=== PATIENT | female | born 1950 ===

== ENCOUNTER 2017-09-29 14:30 | Inpatient (IN) | payer OTHER, MEDICAID ==
[2017-09-29 16:29] LABS: BASO % 0.6 % (0.0-2.0); EOS # 0.1 K/uL (0.0-0.7); EOS % 1.9 % (0.0-4.0); HEMOGLOBIN 12.8 g/dL (11.0-16.0); LYMPH # 1.1 K/uL (1.0-4.3); LYMPH % 22.1 % (20.0-40.0); MEAN CELL VOLUME 94.7 fL (81.0-99.0); MEAN CORPUSCULAR HGB CONC 33.8 g/dL (33.0-37.0); MEAN PLATELET VOLUME 8.2 fL (7.2-11.7); MONO # 0.3 K/uL (0.0-0.8); MONO % 6.3 % (0.0-10.0); NEUT # 3.5 K/uL (1.8-7.0); NEUT % 69.1 % (50.0-75.0); NRBC % 0.1 % (0.0-2.0); RED CELL DISTRIBUTION WIDTH 13.9 % (11.5-14.5); WHITE BLOOD COUNT 5.1 K/uL (4.8-10.8)
[2017-09-29 16:36] LABS: SQUAMOUS EPITHIAL 2 /hpf (0-5); URINE BACTERIA OCC (<OCC); URINE BILIRUBIN NEGATIVE (NEGATIVE); URINE CLARITY Hazy (Clear); URINE COLOR Yellow (YELLOW); URINE GLUCOSE (UA) NORMAL (Normal); URINE PROTEIN NEGATIVE (NEGATIVE)
[2017-09-29 16:37] LABS: URINE BLOOD 1+ (NEGATIVE); URINE LEUKOCYTE ESTERASE NEGATIVE Leu/uL (Negative)
--- NOTE | 2017-09-29 16:37 | C.PDOC ---
History Of Present Illness 67-year-old female, presents to the emergency department with complaints of depression. Patient states she was seen at [facility], where she was referred to ED. Denies any plan or HI. Time Seen by Provider: 09/29/17 15:11 Chief Complaint (Nursing): Psychiatric Evaluation History Per: Patient History/Exam Limitations: no limitations Past Medical History Reviewed: Historical Data, Nursing Documentation, Vital Signs Vital Signs: Last Vital Signs Temp 98.1 F 10/02/17 06:23 Pulse 70 10/02/17 08:50 Resp 20 10/02/17 06:23 BP 133/71 10/02/17 08:50 Pulse Ox 96 10/02/17 06:23 - Medical History PMH: Anxiety, Depression, HTN Family History: States: No Known Family Hx - Social History Hx Alcohol Use: No Hx Substance Use: No - Immunization History Hx Tetanus Toxoid Vaccination: No Hx Influenza Vaccination: Yes Hx Pneumococcal Vaccination: No Review Of Systems Psych: Positive for: Depression. Negative for: Suicidal ideation Physical Exam - Physical Exam Appears: Non-toxic, No Acute Distress (tearful) Skin: Warm, Dry, No Rash Head: Normacephalic Eye(s): bilateral: PERRL Nose: Normal Oral Mucosa: Moist Lips: Normal Appearing Neck: Normal ROM Cardiovascular: Rhythm Regular, No Murmur Respiratory: Normal Breath Sounds, No Accessory Muscle Use Gastrointestinal/Abdominal: Normal Exam, Bowel Sounds, Soft Extremity: Normal ROM, No Deformity, No Swelling Neurological/Psych: Oriented x3, Normal Speech ED Course And Treatment - Laboratory Results Result Diagrams: 09/29/17 16:26 09/29/17 16:26 ECG: Interpreted By Me, Viewed By Me ECG Rhythm: Sinus Rhythm ECG Interpretation: No Acute Changes Rate From EC O2 Sat by Pulse Oximetry: 95 (RA) Pulse Ox Interpretation: Normal Medical Decision Making Medical Decision Making: medically cleared for crisis Patient will be admitted to Dr Perry service for depression. Disposition Discussed With : Verenice Rojas Doctor Will See Patient In The: Hospital Counseled Patient/Family Regarding: Studies Performed, Diagnosis - Disposition Disposition: HOSPITALIZED Disposition Time: 18:13 Condition: FAIR - Clinical Impression Clinical Impression: Major depression - Scribe Statement The provider has reviewed the documentation as recorded by the Scribe (Luz Marina Shepherd) Provider Attestation: All medical record entries made by the Scribe were at my direction and personally dictated by me. I have reviewed the chart and agree that the record accurately reflects my personal performance of the history, physical exam, medical decision making, and the department course for this patient. I have also personally directed, reviewed, and agree with the discharge instructions and disposition.
[2017-09-29 16:41] LABS: ALB/GLOB RATIO 1.3 (1.0-2.1); ALT/SGPT 16 U/L (9-52); AST/SGOT 22 U/L (14-36); BLOOD UREA NITROGEN 29 mg/dL (7-17); CALCIUM 8.5 mg/dl (8.6-10.4); GFR AFRICAN-AMERICAN 60; GFR NON-AFRICAN AMERICAN 49
[2017-09-29 16:49] LABS: BARBITURATES, UR NEGATIVE (NEGATIVE); BENZODIAZEPINES, UR NEGATIVE (NEGATIVE); OPIATES, UR NEGATIVE (NEGATIVE); PHENCYCLIDINE, UR NEGATIVE (NEGATIVE)
--- NOTE | 2017-09-29 21:46 | PCM.BM ---
<Romy Walker - Last Filed: 09/29/17 21:45> Treatment Plan Problems - Problems identified on initial assessmt Depression Date Initiated: 09/29/17 Time Initiated: 21:46 Assessment reference: NA Status: Active Anxiety Date Initiated: 09/29/17 Time Initiated: 21:46 Assessment reference: NA Status: Active Treatment assets and liabiliti Patient Assests: adapts well, cooperative - Milieu Protocol Maintain good personal hygiene: every shift Encourage regular showers, every shift Remind patient to perform daily oral care, every shift Assist patient to perform ADL's Maintain personal safety: every shift Educate patient to report safety concerns to staff, every shift Monitor environment for contraband/sharps Medication safety: Monitor for expected outcome, potential side effects: every shift, Assess barriers to learning: every shift, Assess readiness for medication education: every shift <Pooja Mccabe - Last Filed: 10/01/17 11:08> Family Contact Family involvement: Family/SO is involved Family contact: Patient declines to allow family contact at present - Goals for Treatment Patient goals for treatment: "I want to go to therapy and with my family." Discharge/Continuing Care - Education Needs Education Needs: Patient Medication, Patient Coping Skills - Discharge Discharge Criteria: Tolerates medication w/o severe side effects, Reduction of target symptoms Discharge to:: Home, With Family - Treatment Team Participation Discussed with Family/SO: No Was Patient/Family/SO present at Treatment Team Meeting: Yes <Verenice Rojas - Last Filed: 10/01/17 17:23> - Diagnosis (1) Bipolar disorder Status: Acute Interventions: 10/01/17 17:23 * Assess/adjust medications daily and /or as needed * See patient on an individual basis 7x/week to assess level of manic behaviors and stability * Discuss risks, benefits, side effects and alternatives of medications *
--- NOTE | 2017-09-30 09:50 | PCM.PSYCH ---
Initial Psychiatric Evaluation - Initial Psychiatric Evaluation Type of Admission: Voluntary Legal Status: Capacity Chief Complaint (in patient's own words): 'I was feeling very depressed and anxious.' History of Present Illness and Precipitating Events: Pt is a 67 year old who lives alone, came to the ED with increasingly depressed and anxious mood and feelings of unsafe. As per the ED note, patient presented to the ED with complaints of anxiety, weakness and difficulty breathing which she reports is due to issues with her psychotropic medications for which she is prescribed. Pt stated she has been prescribed medications for depression for over 20 years by a Psychiatrist in the [facility], however, about a month ago she felt the medications were causing very high anxiety and she sought assistance at [facility] in [place], [place]. Pt reports recent relocation to [place]. Pt stated that the only different medication she was prescribed at [facility] was Remeron, which she reports she has been taking a little over a week. Patient remained anxious and depressed but denied. She reports racing of thoughts, flight of ideas and poor concentration. She reports poor sleep. At times she reports depressed mood, feelings of hopelessness and helplessness, crying spells and anhedonia. She denies any auditory or visual hallucinations. She is taking Xanax and Klonopin but denies any substance abuse. Past medical history HTN Current Medications: Active Medications Generic Name Dose Route Start Last Admin Trade Name Freq PRN Reason Stop Dose Admin Gabapentin 300 mg 09/30/17 10:00 Neurontin PO BID AAKASH Home Med 15 mg 09/30/17 10:00 Meloxicam [Mobic] PO DAILY AAKASH Hydroxyzine HCl 25 mg 09/29/17 22:07 Atarax PO Q6 PRN Anxiety Lisinopril 10 mg 09/30/17 10:00 Zestril PO DAILY AAKASH Mirtazapine 7.5 mg 09/30/17 10:00 Remeron PO DAILY AAKASH Trazodone HCl 50 mg 09/29/17 22:15 09/29/17 22:33 Desyrel PO 50 mg HS AAKASH Administration Past Psychiatric History - Past Psychiatric History Previous Treatment History: None Pertinent Medical Hx (Current Medical&Sleep Prob, Allergies): Allergies Allergy/AdvReac Type Severity Reaction Status Date / Time No Known Allergies Allergy Verified 09/29/17 15:15 Gabapentin 300 mg PO BID 09/29/17 Hydroxychloroquine Sulfate [Plaquenil] 200 mg PO DAILY 09/29/17 Lisinopril [Zestril] 10 mg PO DAILY 09/29/17 Meloxicam [Mobic] 15 mg PO DAILY 09/29/17 Meloxicam [Mobic] 15 mg PO DAILY 09/29/17 Mirtazapine [Remeron] 7.5 mg PO DAILY 09/29/17 Venlafaxine [Effexor XR] 300 mg PO DAILY 09/29/17 Review of Systems - Review of Systems All systems: reviewed and no additional remarkable complaints except - Psychiatric Psychiatric: Anxiety, Depression, Hopelessness, Irritability Mental Status Examination - Personal Presentation Personal Presentation: Looks stated age - Affect Affect: Constricted, Depressed - Motor Activity Motor Activity: Calm - Reliability in Providing Information Reliability in Providing Information: Poor, due to altered mood - Speech Speech: Organized - Mood Mood: Depressed, Anxious - Formal Thought Process Formal Thought Process: Flight of ideas, Circumstantial - Obsessions/Compulsions Obsessions: No Compulsions: No - Cognitive Functions Orientation: Person, Place, Situation, Time Sensorium: Alert Attention/Concentration: Attentive Abstract Thinking: Rosenberg Estimate of Intelligence: Below average Judgement: Imparied, as evidence by: Poor judgement, Imparied, as evidence by: Lack of insight into illness - Risk Risk: Diminished functioning - Limitations Limitations: Living alone DSM 5 DX - DSM 5 DSM 5 Diagnosis: Bipolar disorder MRE mixed severe without psychotic features Sed/ Hyp use disorder moderate - Recommended/Plan of Treatment Treatment Recommendations and Plan of Treatment: Bipolar disorder MRE mixed severe without psychotic features CBT Psychoeducation Supportive therapy, group therapy, individual therapy [place] 300 mg PO TID Neurontin 300 mg PO BID Trazodone 50 mg by mouth daily at bedtime Discontinue Remeron Discontinue venlafaxine Sed/ Hyp use disorder moderate CBT Psychoeducation Supportive therapy, individual therapy Use [place] for abstinence Ativan prn HTN Continue prescribed medications - Smoking Cessation Smoking Cessation Initiated: No
[2017-09-30] MEDS ORDERED: Venlafaxine 150 mg ER Cap PO SCH (10:00)
[2017-09-30] MEDS: Naproxen 275 mg Tab PO SCH (17:13)
[2017-10-01] MEDS: Naproxen 275 mg Tab PO SCH ×2 (09:31→17:53)
--- NOTE | 2017-10-01 11:07 | PCM.PYCHPN ---
Psychiatric Progress Note - Psychiatric Progress Note Patient seen today, length of contact: 15 min Patient Chief Complaint: I am feeling anxious.' Problems Identified/Issues Discussed: Patient seen and evaluated, chart reviewed and discussed with the nurse. As per the staff, patient still appears isolated, and withdrawn. Patient still reports depressed and anxious mood. She still reports train of thoughts, poor concentration and poor sleep. She denies any auditory or visual hallucinations or any psychotic symptoms. She is compliant with her medications and denies any side effects. She needs some more time for stabilization. Supportive therapy and psychoeducation were given. Medication Change: No Medical Record Reviewed: Yes Mental Status Examination - Cognitive Function Orientation: Person, Place, Situation, Time Memory: Intact Attention: WNL Concentration: Poor Association: WNL Fund of Knowledge: Poor - Mood Mood: Depressed, Anxious - Affect Affect: Constricted, Depressed - Speech Speech: Soft - Formal Thought Process Formal Thought Process: Flight of ideas, Circumstantial - Suicidal Ideation Suicidal Ideation: No - Homicidal Ideation Homicidal Ideation: No Goal/Treatment Plan - Goal/Treatment Plan Need for Continued Stay: Severe depression anxiety, Severe functional impairment Progress Toward Problem(s) and Goals/Treatment Plan: Bipolar disorder MRE mixed severe without psychotic features CBT Psychoeducation Supportive therapy, group therapy, individual therapy [place] 300 mg PO TID Neurontin 300 mg PO BID Trazodone 50 mg by mouth daily at bedtime Discontinue Remeron Discontinue venlafaxine Sed/ Hyp use disorder moderate CBT Psychoeducation Supportive therapy, individual therapy Use [place] for abstinence Ativan prn HTN Continue prescribed medications - Smoking Cessation Smoking Cessation Initiated: No
--- NOTE | 2017-10-01 23:22 | CARD ---
APPROVED REPORT EKG Measurement Heart [id number] <Conclusion> Normal sinus rhythm Normal ECG
[2017-10-02] MEDS: Naproxen 275 mg Tab PO SCH ×3 (10:03→17:50)
--- NOTE | 2017-10-02 18:31 | PCM.PYCHPN ---
Psychiatric Progress Note - Psychiatric Progress Note Patient seen today, length of contact: 15 min Patient Chief Complaint: I am feeling anxious.' Problems Identified/Issues Discussed: Patient seen and evaluated, chart reviewed and discussed with the nurse. As per the staff, patient still appears isolated, and withdrawn. Patient still reports depressed and anxious mood. She still reports train of thoughts, poor concentration and poor sleep. She denies any auditory or visual hallucinations or any psychotic symptoms. She is compliant with her medications and denies any side effects. She needs some more time for stabilization. Supportive therapy and psychoeducation were given. Medication Change: No Medical Record Reviewed: Yes Mental Status Examination - Cognitive Function Orientation: Person, Place, Situation, Time Memory: Intact Attention: WNL Concentration: Poor Association: WNL Fund of Knowledge: Poor - Mood Mood: Depressed, Anxious - Affect Affect: Constricted, Depressed - Speech Speech: Soft - Formal Thought Process Formal Thought Process: Flight of ideas, Circumstantial - Suicidal Ideation Suicidal Ideation: No - Homicidal Ideation Homicidal Ideation: No Goal/Treatment Plan - Goal/Treatment Plan Need for Continued Stay: Severe depression anxiety, Severe functional impairment Progress Toward Problem(s) and Goals/Treatment Plan: Bipolar disorder MRE mixed severe without psychotic features CBT Psychoeducation Supportive therapy, group therapy, individual therapy [place] 300 mg PO TID Neurontin 300 mg PO BID Trazodone 50 mg by mouth daily at bedtime Discontinue Remeron Discontinue venlafaxine Sed/ Hyp use disorder moderate CBT Psychoeducation Supportive therapy, individual therapy Use [place] for abstinence Ativan prn HTN Continue prescribed medications
[2017-10-03] MEDS: Naproxen 275 mg Tab PO SCH ×2 (10:05→17:39)
--- NOTE | 2017-10-04 00:53 | PCM.PYCHPN ---
Psychiatric Progress Note - Psychiatric Progress Note Patient seen today, length of contact: 15 min Patient Chief Complaint: I am feeling anxious.' Problems Identified/Issues Discussed: Patient seen and evaluated, chart reviewed and discussed with the nurse. Patient reports improvement in her depressed and anxious mood. She also reports improvement in the train of thoughts, poor concentration and poor sleep. She is compliant with her medications and denies any side effects. She needs some more time for stabilization. Supportive therapy and psychoeducation were given. Medication Change: No Medical Record Reviewed: Yes Mental Status Examination - Cognitive Function Orientation: Person, Place, Situation, Time Memory: Intact Attention: WNL Concentration: Poor Association: WNL Fund of Knowledge: Poor - Mood Mood: Depressed, Anxious - Affect Affect: Constricted, Depressed - Speech Speech: Soft - Formal Thought Process Formal Thought Process: Flight of ideas, Circumstantial - Suicidal Ideation Suicidal Ideation: No - Homicidal Ideation Homicidal Ideation: No Goal/Treatment Plan - Goal/Treatment Plan Need for Continued Stay: Severe depression anxiety, Severe functional impairment Progress Toward Problem(s) and Goals/Treatment Plan: Bipolar disorder MRE mixed severe without psychotic features CBT Psychoeducation Supportive therapy, group therapy, individual therapy [place] 300 mg PO TID Neurontin 300 mg PO BID Trazodone 50 mg by mouth daily at bedtime Discontinue Remeron Discontinue venlafaxine Sed/ Hyp use disorder moderate CBT Psychoeducation Supportive therapy, individual therapy Use [place] for abstinence Ativan prn HTN Continue prescribed medications - Smoking Cessation Smoking Cessation Initiated: No
[2017-10-04] MEDS: Naproxen 275 mg Tab PO SCH ×2 (09:38→17:26)
[2017-10-04] MEDS: Aluminum Hydroxide/Magnesium Hydroxide Susp (30 mL) PO PRN ×2 (16:12→22:05)
--- NOTE | 2017-10-04 17:03 | PCM.PYCHPN ---
Psychiatric Progress Note - Psychiatric Progress Note Patient seen today, length of contact: 15 min Patient Chief Complaint: I'm feeling better. Problems Identified/Issues Discussed: Patient seen, chart reviewed, case discussed with the staff. Issues related to illness and treatment were discussed with the patient. Reported compliant with treatment with no adverse affects. Reported feeling better now. Mood reported as okay. Affect appropriate. Awake alert oriented 3, no delusions, no auditory or visual hallucinations, no suicidal ideations or homicidal ideations at the time of evaluation. Aftercare discussed with the patient. Medical Problems: Hypertension Diagnostic Results: Reviewed DSM 5 Symptoms Update: Improving with treatment Medication Change: No Medical Record Reviewed: Yes Mental Status Examination - Cognitive Function Orientation: Person, Place, Situation, Time Memory: Intact Attention: WNL Concentration: WNL Association: WNL Fund of Knowledge: [facility] Decription of patient's judgement and insights: Fair - Mood Mood: Depressed - Affect Affect: Depressed - Speech Speech: Soft - Formal Thought Process Formal Thought Process: No Impairment Psychotic Thoughts and Behaviors: None - Suicidal Ideation Suicidal Ideation: No - Homicidal Ideation Homicidal Ideation: No Goal/Treatment Plan - Goal/Treatment Plan Need for Continued Stay: Remain at risks for inpatient hospitalization, Discharge may exacerbated symptoms, Severe functional impairment Progress Toward Problem(s) and Goals/Treatment Plan: Patient education Supportive therapy Continue treatment as before Estimated Date of D/C: 10/06/17 - Smoking Cessation Smoking Cessation Initiated: No
[2017-10-05 05:48] VITALS: BP 135/88; PULSE 106; RESP 18; TEMP 97.9; O2SAT 99
--- NOTE | 2017-10-05 08:07 | PCM.PYCHDC ---
Mental Status Examination - Mental Status Examination Orientation: Person, Place, Situation, Time Discharge Summary - Discharge Note Consultations:: List each consultation separately and include: 1. Reason for request. 2. Findings. 3. Follow-up Summary of Hospital Course include:: 1. Description of specific treatment plan utilized for patients during their course of treatmen. 2. Summarize the time- course for resolution of acute symptoms and/or regressed behaviors. 3. Describe issues identified and worked on during hospitalization. 4. Describe medication utilized. 5. Describe medical problems identified and treated. 6. Reassessment of suicide risk Summary of Hospital Course: Pt is a 67 year old who lives alone, came to the ED with increasingly depressed and anxious mood and feelings of unsafe. As per the ED note, patient presented to the ED with complaints of anxiety, weakness and difficulty breathing which she reports is due to issues with her psychotropic medications for which she is prescribed. Pt stated she has been prescribed medications for depression for over 20 years by a Psychiatrist in the [facility], however, about a month ago she felt the medications were causing very high anxiety and she sought assistance at [facility] in [place], [place]. Pt reports recent relocation to [place]. Pt stated that the only different medication she was prescribed at [facility] was Remeron, which she reports she has been taking a little over a week. Patient remained anxious and depressed but denied. She reports racing of thoughts, flight of ideas and poor concentration. She reports poor sleep. At times she reports depressed mood, feelings of hopelessness and helplessness, crying spells and anhedonia. She denies any auditory or visual hallucinations. She is taking Xanax and Klonopin but denies any substance abuse. Past medical history HTN - Diagnosis (1) Bipolar disorder Current Visit: Yes Status: Acute - Final Diagnosis (DSM 5) Condition upon Discharge: FAIR Disposition: HOME/ ROUTINE Follow-up Treatment Plan: Bipolar disorder MRE mixed severe without psychotic features CBT Psychoeducation Supportive therapy, group therapy, individual therapy [place] 300 mg PO TID Neurontin 300 mg PO BID Trazodone 50 mg by mouth daily at bedtime Discontinue Remeron Discontinue venlafaxine Sed/ Hyp use disorder moderate CBT Psychoeducation Supportive therapy, individual therapy Use [place] for abstinence Ativan prn HTN Continue prescribed medications Prescriptions/Medication Reconciliation: Gabapentin 300 mg PO BID #60 capsule [place] Carbonate [[place] Carbonate 300MG] 450 mg PO BID 30 Days #60 cap traZODone [Desyrel] 50 mg PO HS #30 tab
[2017-10-05] MEDS: Naproxen 275 mg Tab PO SCH (09:48)
== END 2017-10-05 09:55 | disposition home or self-care (01) | DRG 885 ==
LOC: C.ER 14:30 → C.9E 18:12 → C.5E 18:48
PROVIDERS: ADMIT Psychiatry & Neurology Psychiatry; ATTEND Psychiatry & Neurology Psychiatry
PROC: GZHZZZZ Group Psychotherapy (ICD-10-PCS; principal; 2017-09-29)
DX: F31.63 Bipolar disorder, current episode mixed, severe, without psychotic features (principal); F41.9 Anxiety disorder, unspecified; I10 Essential (primary) hypertension

== ENCOUNTER 2017-10-16 16:15 | Inpatient (IN) | payer OTHER ==
[2017-10-16] MEDS ORDERED: DiphenhydrAMINE 50 mg/ml Inj IVP STA (17:33)
[2017-10-16 18:16] LABS: SQUAMOUS EPITHIAL 3 /hpf (0-5); URINE BACTERIA RARE (<OCC); URINE BILIRUBIN NEGATIVE (NEGATIVE); URINE BLOOD NEGATIVE (NEGATIVE); URINE CLARITY Clear (Clear); URINE COLOR Yellow (YELLOW); URINE GLUCOSE (UA) NORMAL (Normal); URINE LEUKOCYTE ESTERASE NEGATIVE Leu/uL (Negative); URINE PROTEIN NEGATIVE (NEGATIVE); URINE UROBILINOGEN NORMAL mg/dL (0.2-1.0)
[2017-10-16 18:27] LABS: BASO % 0.2 % (0.0-2.0); EOS # 0.1 K/uL (0.0-0.7); EOS % 2.2 % (0.0-4.0); HEMOGLOBIN 12.4 g/dL (11.0-16.0); LYMPH # 0.9 K/uL (1.0-4.3); LYMPH % 13.8 % (20.0-40.0); MEAN CELL VOLUME 94.9 fL (81.0-99.0); MEAN CORPUSCULAR HEMOGLOBIN 32.3 pg (27.0-31.0); MEAN CORPUSCULAR HGB CONC 34.1 g/dL (33.0-37.0); MEAN PLATELET VOLUME 8.9 fL (7.2-11.7); MONO # 0.4 K/uL (0.0-0.8); MONO % 5.4 % (0.0-10.0); NEUT # 5.4 K/uL (1.8-7.0); NEUT % 78.4 % (50.0-75.0); RBC 3.82 Mil/uL (3.80-5.20); RED CELL DISTRIBUTION WIDTH 13.8 % (11.5-14.5); WHITE BLOOD COUNT 6.8 K/uL (4.8-10.8)
[2017-10-16 18:38] LABS: BARBITURATES, UR NEGATIVE (NEGATIVE); BENZODIAZEPINES, UR NEGATIVE (NEGATIVE); OPIATES, UR NEGATIVE (NEGATIVE); PHENCYCLIDINE, UR NEGATIVE (NEGATIVE)
[2017-10-16] MEDS ORDERED: DiphenhydrAMINE 50 mg/ml Inj ONE (18:44)
[2017-10-16 18:45] LABS: ALB/GLOB RATIO 1.2 (1.0-2.1); ALT/SGPT 18 U/L (9-52); AST/SGOT 24 U/L (14-36); BLOOD UREA NITROGEN 26 mg/dL (7-17); CALCIUM 9.1 mg/dl (8.6-10.4); GFR AFRICAN-AMERICAN 45; GFR NON-AFRICAN AMERICAN 37
[2017-10-16] MEDS ORDERED: Sodium Chloride 0.9% 1,000 ML IV ONE ×2 (18:48→21:17)
--- NOTE | 2017-10-16 18:50 | CT ---
PROCEDURE: CT HEAD WITHOUT CONTRAST. HISTORY: Headache, Tremors COMPARISON: None available. TECHNIQUE: Axial computed tomography images were obtained through the head/brain without intravenous contrast. Radiation dose: Total exam DLP = 859.97 mGy-cm. This CT exam was performed using one or more of the following dose reduction techniques: Automated exposure control, adjustment of the mA and/or kV according to patient size, and/or use of iterative reconstruction technique. FINDINGS: HEMORRHAGE: No intracranial hemorrhage. BRAIN: The carballo-white matter differentiation is well preserved. There is no mass effect or definitive edema pattern appreciate including the cortex. There is expansion of the ventriculosulcal and cisternal spaces however in a pattern most compatible with diffuse cerebral atrophy. No suspicious extra-axial fluid collection is identified in the midline brain anatomy appears grossly nonfocal as imaged. VENTRICLES: Unremarkable. No hydrocephalus. CALVARIUM: Unremarkable. PARANASAL SINUSES: Unremarkable as visualized. No significant inflammatory changes. MASTOID AIR CELLS: Unremarkable as visualized. No inflammatory changes. OTHER FINDINGS: Incidental note is made of postop for fixation of left sphenoid bone fracture as well as the posterior orbital wall. IMPRESSION: No definite acute intracranial findings by standard CT criteria. Mild diffuse cerebral atrophy identified. Follow-up CT or MRI are available as clinically warranted. Incidental note is made of postoperative left orbit changes reducing fractures, now healed apparently.
[2017-10-16 18:57] LABS: FREE T4 0.86 ng/dL (0.78-2.19)
[2017-10-16] MEDS ORDERED: Sodium Chloride 0.9% 1,000 ML ONE (21:42)
--- NOTE | 2017-10-16 21:55 | C.PDOC ---
History Of Present Illness Pt c/o tremors that started 2 weeks ago. Pt was admitted to the psych unit 3 weeks ago and started on medications, including [place]. Time Seen by Provider: 10/16/17 17:04 Chief Complaint (Nursing): Weakness/Neurological Deficit History Per: Patient, Family Onset/Duration Of Symptoms: Days (about 2 weeks), Waxing/Waning Current Symptoms Are (Timing): Still Present Current Symptoms: Tremors Severity: Moderate Additional History Per: Prior Records - Symptoms Of CVA Associated Symptoms: Decreased Ability To Walk Recent Head Trauma: No Past Medical History Reviewed: Historical Data, Nursing Documentation, Vital Signs Vital Signs: Last Vital Signs Temp 98 F 10/16/17 20:17 Pulse 81 10/16/17 20:17 Resp 18 10/16/17 20:17 BP 127/73 10/16/17 20:17 Pulse Ox 98 10/16/17 21:59 - Medical History PMH: Anxiety, Depression, HTN - [employer] [facility] GROUP PSYCHOTHERAPY (09/29/17) Family History: States: Unknown Family Hx - Social History Hx Tobacco Use: No Hx Alcohol Use: No Hx Substance Use: No - Immunization History Hx Tetanus Toxoid Vaccination: No Hx Influenza Vaccination: Yes Hx Pneumococcal Vaccination: No Review Of Systems Except As Marked, All Systems Reviewed And Found Negative. Constitutional: Negative for: Fever Cardiovascular: Negative for: Chest Pain Respiratory: Negative for: Shortness of Breath Gastrointestinal: Negative for: Abdominal Pain Musculoskeletal: Negative for: Neck Pain Skin: Negative for: Rash Neurological: Positive for: Numbness (b/l fingers), Headache, Dizziness. Negative for: Weakness, Seizures Physical Exam - Physical Exam Appears: Non-toxic, No Acute Distress Skin: Normal Color, Warm, Dry, No Rash Head: Atraumatic, Normacephalic Eye(s): bilateral: PERRL, EOMI Neck: Normal ROM, Supple Cardiovascular: Rhythm Regular Respiratory: Normal Breath Sounds, No Accessory Muscle Use Gastrointestinal/Abdominal: Soft, No Tenderness Back: No CVA Tenderness Extremity: Normal ROM Neurological/Psych: Oriented x3, No Cerebellar Signs, Normal Motor, Normal Sensation, Other (b/l tremors) ED Course And Treatment - Laboratory Results Result Diagrams: 10/16/17 18:19 10/16/17 21:38 Lab Interpretation: Abnormal Interpretation Of Abnormal: Elevated [place] level ECG: Interpreted By Me, Viewed By Me ECG Rhythm: Sinus Rhythm, Nonspecific Changes ECG Interpretation: No Acute Changes Rate From EC O2 Sat by Pulse Oximetry: 98 Pulse Ox Interpretation: Normal Progress Note: Pt d/w Katie Hanson at [facility]. She recommended IV fluid hydration, EKG and repeat [place] level. [place] level is decreasing. Creatinine level is improving as well. Reassessment Condition: Improved Progress - Interventions Interventions:: Observation, Intravenous fluid - Data Reviewed Data Reviewed: Lab, EKG, Old records - Patient Status Patient status: Partially improved - Continuity of Care Discussed patient case with:: Patient, Family-HIPPA compliant, ED Nurse, Covering for PMD - Patient Plan Patient Plan: Admission, Telemetry Disposition Discussed With Dr.: Aaron Gaines Comment: He accepted pt on hospitalist service as pt's PMD is Dr. Katie Waddell. Doctor Will See Patient In The: Hospital Counseled Patient/Family Regarding: Studies Performed, Diagnosis - Disposition Disposition: HOSPITALIZED Disposition Time: 22:06 Condition: GUARDED - Clinical Impression Clinical Impression: [place] toxicity
[2017-10-16 21:57] LABS: CALCIUM 8.6 mg/dl (8.6-10.4)
--- NOTE | 2017-10-16 23:38 | CP.PCM.HP ---
<Jonathan Moon - Last Filed: 10/17/17 04:07> History of Present Illness - History of Present Illness History of Present Illness: CC: tremors 67 year old past medical history of depression, bipolar disorder, hypertension, and breast cancer s/p partial masectomy presents to the ED for tremors. Patient states that the tremors started 5 days ago. She notices that her bilateral legs and hands have been shaking uncontrollably during this time. She has not done or taken anything to lessen the tremors. She is also complaining of a mild headache and has been feeling nauseous with a decreased appetite for the past few days. She was recently admitted to [facility] psych unit 3 weeks ago where she was diagnosed and treated for bipolar disorder and started on Ralls 450 mg BID daily. She denies any Fevers, chills, chest pain, palpitation, D/C/N/ V, dizziness, weight changes, hematuria, dysuria, numbness/tingling, or weakness. 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 Alan Guzman [facility]: [phone] PMHx: HTN, Bipolar Disorder, Depression PSHx: partial right mastectomy (1999), knee surgery, surgery for urinary incontinence Social Hx: Patient recently moved from [place] to [place] 4-5 months ago. She lives alone. She denies alcohol, tobacco, or any illicit drug use currently or in the past Family Hx: Father from Stroke at age 65, mother at age 93 Medications: Ralls, Gabapentin, Lisinopril Present on Admission - Present on Admission Any Indicators Present on Admission: No Review of Systems - Constitutional Constitutional: As Per HPI. absent: Chills, Fever - EENT Eyes: As Per HPI. absent: Blurred Vision, Decreased Night Vision Ears: As Per HPI. absent: Dizziness Nose/Mouth/Throat: As Per HPI. absent: Epistaxis, Nasal Congestion - Breasts Breasts: As Per HPI - Cardiovascular Cardiovascular: As Per HPI. absent: Chest Pain, Chest Pain at Rest, Chest Pain with Activity, Pedal Edema, Syncope - Respiratory Respiratory: As Per HPI. absent: Cough, Dyspnea - Gastrointestinal Gastrointestinal: As Per HPI. absent: Abdominal Pain, Change in Bowel Habits, Diarrhea, Vomiting - Genitourinary Genitourinary: As Per HPI - Reproductive: Female Reproductive:Female: As Per HPI - Menstruation Menstruation: As Per HPI - Musculoskeletal Musculoskeletal: As Per HPI. absent: Numbness, Tingling - Integumentary Integumentary: As Per HPI. absent: Acne, Alopecia - Neurological Neurological: As Per HPI, Tremor. absent: Dizziness, Numbness, Tingling - Psychiatric Psychiatric: As Per HPI, Depression. absent: Anxiety, Suicidal Ideation, Visual Hallucinations - Endocrine Endocrine: As Per HPI - Hematologic/Lymphatic Hematologic: As Per HPI Past Patient History - Infectious Disease Hx of Infectious Diseases: None - Past Social History Smoking Status: Never Smoked - CARDIAC Hx Hypertension: Yes - NEUROLOGICAL Other/Comment: Hx of fibromyalgia - PSYCHIATRIC Hx Anxiety: Yes Hx Depression: Yes Hx Substance Use: No - SURGICAL HISTORY Hx Surgeries: Yes Other/Comment: Right breast CA with lumpectomy. Appendectomy. Right knee surgery. Bladder lift surgery - ANESTHESIA Hx Anesthesia: Yes Hx Anesthesia Reactions: No Hx Malignant Hyperthermia: No Meds Allergies/Adverse Reactions: Allergies Allergy/AdvReac Type Severity Reaction Status Date / Time No Known Allergies Allergy Verified 10/16/17 16:20 Physical Exam - Constitutional Appears: Non-toxic, No Acute Distress - Head Exam Head Exam: ATRAUMATIC, NORMOCEPHALIC - Eye Exam Eye Exam: EOMI, Normal appearance Pupil Exam: NORMAL ACCOMODATION - ENT Exam ENT Exam: Mucous Membranes Moist - Neck Exam Neck exam: Positive for: Normal Inspection - Respiratory Exam Respiratory Exam: Clear to Auscultation Bilateral, NORMAL BREATHING PATTERN. absent: Wheezes, Respiratory Distress - Cardiovascular Exam Cardiovascular Exam: REGULAR RHYTHM, +S1, +S2 - GI/Abdominal Exam GI & Abdominal Exam: Normal Bowel Sounds, Soft. absent: Tenderness - Extremities Exam Extremities exam: Positive for: normal inspection, pedal pulses present - Neurological Exam Neurological exam: Alert, Oriented x3 Additional comments: bilateral upper and lower extremity tremors - Psychiatric Exam Psychiatric exam: Flat Affect Additional comments: circumstantial speech - Skin Skin Exam: Dry, Intact, Warm Results - Vital Signs Recent Vital Signs: Last Vital Signs Temp 98 F 10/16/17 20:17 Pulse 79 10/16/17 21:27 Resp 18 10/16/17 21:27 BP 137/74 10/16/17 21:27 Pulse Ox 98 10/16/17 22:07 - Labs Result Diagrams: 10/16/17 18:19 10/16/17 21:38 Labs: Laboratory Results - last 24 hr 10/16/17 10/16/17 10/16/17 18:05 18:05 18:19 WBC 6.8 RBC 3.82 Hgb 12.4 Hct 36.3 MCV 94.9 MCH 32.3 H MCHC 34.1 RDW 13.8 Plt Count 177 MPV 8.9 Neut % (Auto) 78.4 H Lymph % (Auto) 13.8 L [place] % (Auto) 5.4 Eos % (Auto) 2.2 Baso % (Auto) 0.2 Neut # (Auto) 5.4 Lymph # (Auto) 0.9 L [place] # (Auto) 0.4 Eos # (Auto) 0.1 Baso # (Auto) 0.0 Sodium Potassium Chloride Carbon Dioxide Anion Gap BUN Creatinine Est GFR ( Amer) Est GFR (Non-Af Amer) Random Glucose Calcium Magnesium Total Bilirubin AST ALT Alkaline Phosphatase Total Protein Albumin Globulin Albumin/Globulin Ratio Free T4 TSH 3rd Generation Urine Color Yellow Urine Clarity Clear Urine pH 7.0 Ur Specific [place] 1.011 Urine Protein Negative Urine Glucose (UA) Normal Urine Ketones Negative Urine Blood Negative Urine Nitrate Negative Urine Bilirubin Negative Urine Urobilinogen Normal Ur Leukocyte Esterase Negative Urine WBC (Auto) 3 Urine RBC (Auto) 2 Ur Squamous Epith Cells 3 Ur Transition Epith Cell < 1 Urine Bacteria Rare Urine Opiates Screen Negative Urine Methadone Screen Negative Ur Barbiturates Screen Negative Ur Phencyclidine Scrn Negative Ur Amphetamines Screen Negative U Benzodiazepines Scrn Negative Ralls U Oth Cocaine Metabols Negative U Cannabinoids Screen Negative Alcohol, Quantitative 10/16/17 10/16/17 10/16/17 18:19 18:19 18:21 WBC RBC Hgb Hct MCV MCH MCHC RDW Plt Count MPV Neut % (Auto) Lymph % (Auto) [place] % (Auto) Eos % (Auto) Baso % (Auto) Neut # (Auto) Lymph # (Auto) [place] # (Auto) Eos # (Auto) Baso # (Auto) Sodium 139 Potassium 4.0 Chloride 98 Carbon Dioxide 28 Anion Gap 16 BUN 26 H Creatinine 1.4 H Est GFR ( Amer) 45 Est GFR (Non-Af Amer) 37 Random Glucose 126 H Calcium 9.1 Magnesium 2.7 H Total Bilirubin 0.7 AST 24 ALT 18 Alkaline Phosphatase 130 H D Total Protein 7.2 Albumin 4.0 Globulin 3.2 Albumin/Globulin Ratio 1.2 Free T4 0.86 TSH 3rd Generation 5.77 H Urine Color Urine Clarity Urine pH Ur Specific [place] Urine Protein Urine Glucose (UA) Urine Ketones Urine Blood Urine Nitrate Urine Bilirubin Urine Urobilinogen Ur Leukocyte Esterase Urine WBC (Auto) Urine RBC (Auto) Ur Squamous Epith Cells Ur Transition Epith Cell Urine Bacteria Urine Opiates Screen Urine Methadone Screen Ur Barbiturates Screen Ur Phencyclidine Scrn Ur Amphetamines Screen U Benzodiazepines Scrn Ralls 2.0 H* U Oth Cocaine Metabols U Cannabinoids Screen Alcohol, Quantitative < 10 10/16/17 10/16/17 21:38 21:38 WBC RBC Hgb Hct MCV MCH MCHC RDW Plt Count MPV Neut % (Auto) Lymph % (Auto) [place] % (Auto) Eos % (Auto) Baso % (Auto) Neut # (Auto) Lymph # (Auto) [place] # (Auto) Eos # (Auto) Baso # (Auto) Sodium 140 Potassium 3.5 L Chloride 104 Carbon Dioxide 26 Anion Gap 13 BUN 23 H Creatinine 1.2 Est GFR ( Amer) 54 Est GFR (Non-Af Amer) 45 Random Glucose 100 Calcium 8.6 Magnesium Total Bilirubin AST ALT Alkaline Phosphatase Total Protein Albumin Globulin Albumin/Globulin Ratio Free T4 TSH 3rd Generation Urine Color Urine Clarity Urine pH Ur Specific [place] Urine Protein Urine Glucose (UA) Urine Ketones Urine Blood Urine Nitrate Urine Bilirubin Urine Urobilinogen Ur Leukocyte Esterase Urine WBC (Auto) Urine RBC (Auto) Ur Squamous Epith Cells Ur Transition Epith Cell Urine Bacteria Urine Opiates Screen Urine Methadone Screen Ur Barbiturates Screen Ur Phencyclidine Scrn Ur Amphetamines Screen U Benzodiazepines Scrn Ralls 1.8 H U Oth Cocaine Metabols U Cannabinoids Screen Alcohol, Quantitative Assessment & Plan - Assessment and Plan (Free Text) Assessment: Ralls toxicity -Ralls level 2.0 on admission, 1.8 after 2L IVF -IVF NS @125ml/hr -Follow up repeat lithium level -Hold lithium home med Headache -CT head no acute intracranial findings -Tylenol prn Hypertension -Lisinopril 10mg Depression -Trazodone Prophylactic measures -Lovenox -Protonix <Aaron Gaines - Last Filed: 10/17/17 05:25> Results - Vital Signs Recent Vital Signs: Last Vital Signs Temp 98.1 F 10/17/17 04:00 Pulse 76 10/17/17 04:00 Resp 18 10/17/17 04:00 BP 156/82 H 10/17/17 04:00 Pulse Ox 96 10/17/17 04:00 - Labs Result Diagrams: 10/16/17 18:19 10/16/17 21:38 Labs: Laboratory Results - last 24 hr 10/16/17 10/16/17 10/16/17 18:05 18:05 18:19 WBC 6.8 RBC 3.82 Hgb 12.4 Hct 36.3 MCV 94.9 MCH 32.3 H MCHC 34.1 RDW 13.8 Plt Count 177 MPV 8.9 Neut % (Auto) 78.4 H Lymph % (Auto) 13.8 L [place] % (Auto) 5.4 Eos % (Auto) 2.2 Baso % (Auto) 0.2 Neut # (Auto) 5.4 Lymph # (Auto) 0.9 L [place] # (Auto) 0.4 Eos # (Auto) 0.1 Baso # (Auto) 0.0 Sodium Potassium Chloride Carbon Dioxide Anion Gap BUN Creatinine Est GFR ( Amer) Est GFR (Non-Af Amer) Random Glucose Calcium Magnesium Total Bilirubin AST ALT Alkaline Phosphatase Total Protein Albumin Globulin Albumin/Globulin Ratio Free T4 TSH 3rd Generation Urine Color Yellow Urine Clarity Clear Urine pH 7.0 Ur Specific [place] 1.011 Urine Protein Negative Urine Glucose (UA) Normal Urine Ketones Negative Urine Blood Negative Urine Nitrate Negative Urine Bilirubin Negative Urine Urobilinogen Normal Ur Leukocyte Esterase Negative Urine WBC (Auto) 3 Urine RBC (Auto) 2 Ur Squamous Epith Cells 3 Ur Transition Epith Cell < 1 Urine Bacteria Rare Urine Opiates Screen Negative Urine Methadone Screen Negative Ur Barbiturates Screen Negative Ur Phencyclidine Scrn Negative Ur Amphetamines Screen Negative U Benzodiazepines Scrn Negative Ralls U Oth Cocaine Metabols Negative U Cannabinoids Screen Negative Alcohol, Quantitative 10/16/17 10/16/17 10/16/17 18:19 18:19 18:21 WBC RBC Hgb Hct MCV MCH MCHC RDW Plt Count MPV Neut % (Auto) Lymph % (Auto) [place] % (Auto) Eos % (Auto) Baso % (Auto) Neut # (Auto) Lymph # (Auto) [place] # (Auto) Eos # (Auto) Baso # (Auto) Sodium 139 Potassium 4.0 Chloride 98 Carbon Dioxide 28 Anion Gap 16 BUN 26 H Creatinine 1.4 H Est GFR ( Amer) 45 Est GFR (Non-Af Amer) 37 Random Glucose 126 H Calcium 9.1 Magnesium 2.7 H Total Bilirubin 0.7 AST 24 ALT 18 Alkaline Phosphatase 130 H D Total Protein 7.2 Albumin 4.0 Globulin 3.2 Albumin/Globulin Ratio 1.2 Free T4 0.86 TSH 3rd Generation 5.77 H Urine Color Urine Clarity Urine pH Ur Specific [place] Urine Protein Urine Glucose (UA) Urine Ketones Urine Blood Urine Nitrate Urine Bilirubin Urine Urobilinogen Ur Leukocyte Esterase Urine WBC (Auto) Urine RBC (Auto) Ur Squamous Epith Cells Ur Transition Epith Cell Urine Bacteria Urine Opiates Screen Urine Methadone Screen Ur Barbiturates Screen Ur Phencyclidine Scrn Ur Amphetamines Screen U Benzodiazepines Scrn Ralls 2.0 H* U Oth Cocaine Metabols U Cannabinoids Screen Alcohol, Quantitative < 10 10/16/17 10/16/17 21:38 21:38 WBC RBC Hgb Hct MCV MCH MCHC RDW Plt Count MPV Neut % (Auto) Lymph % (Auto) [place] % (Auto) Eos % (Auto) Baso % (Auto) Neut # (Auto) Lymph # (Auto) [place] # (Auto) Eos # (Auto) Baso # (Auto) Sodium 140 Potassium 3.5 L Chloride 104 Carbon Dioxide 26 Anion Gap 13 BUN 23 H Creatinine 1.2 Est GFR ( Amer) 54 Est GFR (Non-Af Amer) 45 Random Glucose 100 Calcium 8.6 Magnesium Total Bilirubin AST ALT Alkaline Phosphatase Total Protein Albumin Globulin Albumin/Globulin Ratio Free T4 TSH 3rd Generation Urine Color Urine Clarity Urine pH Ur Specific [place] Urine Protein Urine Glucose (UA) Urine Ketones Urine Blood Urine Nitrate Urine Bilirubin Urine Urobilinogen Ur Leukocyte Esterase Urine WBC (Auto) Urine RBC (Auto) Ur Squamous Epith Cells Ur Transition Epith Cell Urine Bacteria Urine Opiates Screen Urine Methadone Screen Ur Barbiturates Screen Ur Phencyclidine Scrn Ur Amphetamines Screen U Benzodiazepines Scrn Ralls 1.8 H U Oth Cocaine Metabols U Cannabinoids Screen Alcohol, Quantitative Assessment & Plan - Date & Time Date: 10/17/17 (I have seen and examined the patient. I agree with the findings and plan of care as documented by Dr. Moon. Patient with lithium toxicity. Continue IVF and recheck levels in AM. Poison control contacted by ED. History of Hypertension and depression. Continue home meds. Hold lithium. Consult to psych. Monitor for acute changes.) Time: 05:24 Attending/Attestation - Attestation I have personally seen and examined this patient.: Yes I have fully participated in the care of the patient.: Yes I have reviewed all pertinent clinical information: Yes
[2017-10-17] MEDS ORDERED: Potassium Chloride 20 mEq ER Tab PO ONE ×2 (00:06→01:15)
[2017-10-17] MEDS: Sodium Chloride 0.9% 1,000 ML IV SCH ×4 (01:21→18:10)
[2017-10-17 07:30] LABS: BASO % 0.3 % (0.0-2.0); EOS # 0.2 K/uL (0.0-0.7); LYMPH % 13.1 % (20.0-40.0); MEAN CELL VOLUME 95.1 fL (81.0-99.0); MEAN CORPUSCULAR HEMOGLOBIN 32.9 pg (27.0-31.0); MEAN CORPUSCULAR HGB CONC 34.6 g/dL (33.0-37.0); MEAN PLATELET VOLUME 8.8 fL (7.2-11.7); MONO # 0.4 K/uL (0.0-0.8); MONO % 5.5 % (0.0-10.0); NEUT # 6.3 K/uL (1.8-7.0); NEUT % 79.1 % (50.0-75.0); RBC 3.66 Mil/uL (3.80-5.20); RED CELL DISTRIBUTION WIDTH 13.6 % (11.5-14.5)
[2017-10-17 07:55] VITALS: RESP 20
[2017-10-17 08:06] LABS: ALB/GLOB RATIO 1.2 (1.0-2.1); ALBUMIN 3.6 g/dL (3.5-5.0); CALCIUM 8.9 mg/dl (8.6-10.4)
[2017-10-17] MEDS: Potassium Chloride 20 mEq ER Tab PO SCH (10:25)
[2017-10-17] MEDS: Enoxaparin 40 mg Syringe SC SCH (10:26)
[2017-10-17] MEDS: Pantoprazole 40 mg EC Tab PO SCH (10:26)
--- NOTE | 2017-10-17 12:42 | PCM.PSYCH ---
Initial Psychiatric Evaluation - Initial Psychiatric Evaluation Type of Admission: Voluntary Legal Status: Capacity Current Medications: Active Medications Generic Name Dose Route Start Last Admin Trade Name Freq PRN Reason Stop Dose Admin Enoxaparin Sodium 40 mg 10/17/17 10:00 10/17/17 10:26 Lovenox SC 40 mg DAILY AAKASH Administration Gabapentin 300 mg 10/17/17 10:00 10/17/17 10:26 Neurontin PO 300 mg BID AAKASH Administration Sodium Chloride 1,000 mls @ 143 mls/hr 10/17/17 11:11 10/17/17 11:52 Sodium Chloride 0.9% IV 143 mls/hr .Q7H AAKASH Administration Lisinopril 10 mg 10/17/17 10:00 10/17/17 10:26 Zestril PO 10 mg DAILY AAKASH Administration Lorazepam 1 mg 10/17/17 10:36 10/17/17 10:52 Ativan PO 1 mg Q6H PRN Administration Anxiety Pantoprazole Sodium 40 mg 10/17/17 10:00 10/17/17 10:26 Protonix Ec Tab PO 40 mg DAILY AAKASH Administration Pneumococcal Polyvalent Vaccine 0.5 ml 10/18/17 10:00 Pneumovax 23 Vaccine IM 10/18/17 10:01 .ONCE ONE Potassium Chloride 40 meq 10/17/17 10:15 10/17/17 10:25 K-Dur 20 Meq Er Tab PO 40 meq DAILY AAKASH Administration Trazodone HCl 50 mg 10/17/17 22:00 Desyrel PO HS AAKASH Past Psychiatric History - Past Psychiatric History Pertinent Medical Hx (Current Medical&Sleep Prob, Allergies): Allergies Allergy/AdvReac Type Severity Reaction Status Date / Time No Known Allergies Allergy Verified 10/16/17 16:20 Cholecalciferol [Vitamin D 1000 IU] 10/16/17 DULoxetine [Cymbalta] 60 mg PO 10/16/17 Gabapentin 300 mg PO 10/16/17 Lisinopril/Hydrochlorothiazide [Lisinopril-Hctz 10-12.5 mg Tab] 1 tab DAILY 06/23 [place] Carbonate [[place] Carbonate 300MG] 1 cap DAILY 10/16/17 Lubiprostone [Amitiza] 24 mg 10/16/17 Meclizine HCl 12.5 mg PO 10/16/17 Mirtazapine [Remeron Soltab] 15 mg PO 10/16/17 Venlafaxine [Effexor XR] 1 tab DAILY 10/16/17 traZODone [Desyrel] 1 tab HS 10/16/17
[2017-10-17] MEDS ORDERED: Sodium Chloride 0.9% 1,000 ML IV ONE (15:14)
--- NOTE | 2017-10-17 16:29 | CP.PCM.PN ---
<Filipe Gonsalves - Last Filed: 10/17/17 18:05> Subjective - Date & Time of Evaluation Date of Evaluation: 10/17/17 Time of Evaluation: 16:28 - Subjective Subjective: Patient seen and examined at bedside. Still complaining of nausea and vomiting, complaining of chest pain most likely related to her anxiety. No other complaints at this time. Objective - Vital Signs/Intake and Output Vital Signs (last 24 hours): Temp Pulse Resp BP Pulse Ox 98.6 F 82 20 137/77 94 L 10/17/17 15:00 10/17/17 16:00 10/17/17 15:00 10/17/17 15:00 10/17/17 15:00 Intake and Output: 10/17/17 10/17/17 06:59 18:59 Intake Total 2700 1552 Output Total 4050 50 Balance -1350 1502 - Medications Medications: Current Medications Enoxaparin Sodium (Lovenox) 40 mg SC DAILY [facility] Last Admin: 10/17/17 10:26 Dose: 40 mg Gabapentin (Neurontin) 300 mg PO BID [facility] Last Admin: 10/17/17 10:26 Dose: 300 mg Sodium Chloride (Sodium Chloride 0.9%) 1,000 mls @ 143 mls/hr IV .Q7H [facility] Last Admin: 10/17/17 11:52 Dose: 143 mls/hr Lisinopril (Zestril) 10 mg PO DAILY [facility] Last Admin: 10/17/17 10:26 Dose: 10 mg Lorazepam (Ativan) 1 mg PO Q6H PRN PRN Reason: Anxiety Last Admin: 10/17/17 10:52 Dose: 1 mg Pantoprazole Sodium (Protonix Ec Tab) 40 mg PO DAILY [facility] Last Admin: 10/17/17 10:26 Dose: 40 mg Pneumococcal Polyvalent Vaccine (Pneumovax 23 Vaccine) 0.5 ml IM .ONCE ONE Stop: 10/18/17 10:01 Potassium Chloride (K-Dur 20 Meq Er Tab) 40 meq PO DAILY [facility] Last Admin: 10/17/17 10:25 Dose: 40 meq Trazodone HCl (Desyrel) 50 mg PO HS [facility] - Labs Labs: 10/17/17 07:19 10/17/17 07:19 - Constitutional Appears: Well - Head Exam Head Exam: ATRAUMATIC, NORMAL INSPECTION, NORMOCEPHALIC - Eye Exam Eye Exam: EOMI, Normal appearance, PERRL Pupil Exam: NORMAL ACCOMODATION, PERRL - ENT Exam ENT Exam: Mucous Membranes Moist, Normal Exam - Neck Exam Neck Exam: Full ROM, Normal Inspection. absent: Lymphadenopathy - Respiratory Exam Respiratory Exam: Clear to Ausculation Bilateral, NORMAL BREATHING PATTERN - Cardiovascular Exam Cardiovascular Exam: REGULAR RHYTHM, +S1, +S2. absent: Murmur - GI/Abdominal Exam GI & Abdominal Exam: Soft, Normal Bowel Sounds. absent: Tenderness - Extremities Exam Extremities Exam: Full ROM, Normal Capillary Refill, Normal Inspection. absent : Joint Swelling, Pedal Edema - Back Exam Back Exam: NORMAL INSPECTION - Neurological Exam Neurological Exam: Alert, Awake, CN II-XII Intact, Normal Gait, Oriented x3 - Psychiatric Exam Psychiatric exam: Normal Affect, Normal Mood - Skin Skin Exam: Dry, Intact, Normal Color, Warm Assessment and Plan (1) Acute renal failure (ARF) Status: Acute - Assessment and Plan (Free Text) Assessment: Ambler toxicity Ambler level 2.0 on admission, 1.8 after 2L IVF. Today 1.4, continue hydration IVF NS @125ml/hr. 1 L given to encourage U/O, Patient has valenzuela. Monitor UO closely as Ambler may have caused ARF Spoke with psych today. Discharge patient on Ambler 150 BID to follow up at [facility] after discharge. Hypertension Lisinopril 10mg Prophylactic measures Lovenox 40 SC QD GI PPX not indicated <Petra Broderick - Last Filed: 10/18/17 15:46> Objective - Vital Signs/Intake and Output Vital Signs (last 24 hours): Temp Pulse Resp BP Pulse Ox 98.1 F 67 20 145/81 97 10/18/17 07:30 10/18/17 07:30 10/18/17 07:30 10/18/17 07:30 10/18/17 07:30 Intake and Output: 10/18/17 10/18/17 06:59 18:59 Intake Total 1979 Output Total 1700 Balance 279 - Labs Labs: 10/17/17 07:19 10/17/17 07:19 Attending/Attestation - Attestation I have personally seen and examined this patient.: Yes I have fully participated in the care of the patient.: Yes I have reviewed all pertinent clinical information, including history, physical exam and plan: Yes Notes (Text): Patient was seen and examined by me.C/O nausea and dizzy.s/p vomting Her [place] level is coming down. Continue IV hydration. seen by psychiatrist. possible discharge tomorrow. I agree with the resident's documentation of the assessment and the plan.
[2017-10-18] MEDS: Sodium Chloride 0.9% 1,000 ML IV SCH (01:03)
[2017-10-18 08:06] VITALS: BP 145/81; PULSE 67; TEMP 98.1; O2SAT 97
[2017-10-18] MEDS ORDERED: Pneumococcal 23-Valent Vaccine IM ONE (10:00)
[2017-10-18] MEDS: Enoxaparin 40 mg Syringe SC SCH (10:15)
[2017-10-18] MEDS: Pantoprazole 40 mg EC Tab PO SCH (10:15)
[2017-10-18] MEDS: Potassium Chloride 20 mEq ER Tab PO SCH (10:15)
--- NOTE | 2017-10-18 10:33 | CP.PCM.DIS ---
<Jess Ybarra - Last Filed: 10/18/17 13:45> Provider - Provider Date of Admission: 10/16/17 22:07 Attending physician: Aaron Gaines MD Primary care physician: Dr. Alan Guzman Consults: Dr. Rojas - psychiatry Time Spent in preparation of Discharge (in minutes): 35 Diagnosis - Discharge Diagnosis (1) Acute renal failure (ARF) Status: Acute (2) Bipolar disorder Status: Acute (3) [place] toxicity Status: Acute Hospital Course - Lab Results Lab Results: Most Recent Lab Values WBC 8.0 K/uL (4.8-10.8) 10/17/17 07:19 RBC 3.66 Mil/uL (3.80-5.20) L 10/17/17 07:19 Hgb 12.0 g/dL (11.0-16.0) 10/17/17 07:19 Hct 34.8 % (34.0-47.0) 10/17/17 07:19 MCV 95.1 fL (81.0-99.0) 10/17/17 07:19 MCH 32.9 pg (27.0-31.0) H 10/17/17 07:19 MCHC 34.6 g/dL (33.0-37.0) 10/17/17 07:19 RDW 13.6 % (11.5-14.5) 10/17/17 07:19 Plt Count 169 K/uL (130-400) 10/17/17 07:19 MPV 8.8 fL (7.2-11.7) 10/17/17 07:19 Neut % (Auto) 79.1 % (50.0-75.0) H 10/17/17 07:19 Lymph % (Auto) 13.1 % (20.0-40.0) L 10/17/17 07:19 [place] % (Auto) 5.5 % (0.0-10.0) 10/17/17 07:19 Eos % (Auto) 2.0 % (0.0-4.0) 10/17/17 07:19 Baso % (Auto) 0.3 % (0.0-2.0) 10/17/17 07:19 Neut # (Auto) 6.3 K/uL (1.8-7.0) 10/17/17 07:19 Lymph # (Auto) 1.0 K/uL (1.0-4.3) 10/17/17 07:19 [place] # (Auto) 0.4 K/uL (0.0-0.8) 10/17/17 07:19 Eos # (Auto) 0.2 K/uL (0.0-0.7) 10/17/17 07:19 Baso # (Auto) 0.0 K/uL (0.0-0.2) 10/17/17 07:19 Sodium 142 mmol/L (132-148) 10/17/17 07:19 Potassium 3.5 mmol/L (3.6-5.2) L 10/17/17 07:19 Chloride 108 mmol/L (98-107) H 10/17/17 07:19 Carbon Dioxide 26 mmol/L (22-30) 10/17/17 07:19 Anion Gap 12 (10-20) 10/17/17 07:19 BUN 15 mg/dL (7-17) 10/17/17 07:19 Creatinine 1.1 mg/dL (0.7-1.2) 10/17/17 07:19 Est GFR ( Amer) 60 10/17/17 07:19 Est GFR (Non-Af Amer) 49 10/17/17 07:19 Random Glucose 109 mg/dL (65-105) H 10/17/17 07:19 Calcium 8.9 mg/dl (8.6-10.4) 10/17/17 07:19 Magnesium 2.7 mg/dL (1.6-2.3) H 10/16/17 18:19 Total Bilirubin 1.1 mg/dL (0.2-1.3) 10/17/17 07:19 AST 28 U/L (14-36) 10/17/17 07:19 ALT 17 U/L (9-52) 10/17/17 07:19 Alkaline Phosphatase 135 U/L (38-126) H 10/17/17 07:19 Total Protein 6.4 g/dL (6.3-8.3) 10/17/17 07:19 Albumin 3.6 g/dL (3.5-5.0) 10/17/17 07:19 Globulin 2.9 gm/dL (2.2-3.9) 10/17/17 07:19 Albumin/Globulin Ratio 1.2 (1.0-2.1) 10/17/17 07:19 Free T4 0.86 ng/dL (0.78-2.19) 10/16/17 18:19 TSH 3rd Generation 5.57 mIU/L (0.46-4.68) H 10/17/17 07:19 Urine Color Yellow (YELLOW) 10/16/17 18:05 Urine Clarity Clear (Clear) 10/16/17 18:05 Urine pH 7.0 (5.0-8.0) 10/16/17 18:05 Ur Specific Nichols 1.011 (1.003-1.030) 10/16/17 18:05 Urine Protein Negative mg/dL (NEGATIVE) 10/16/17 18:05 Urine Glucose (UA) Normal mg/dL (Normal) 10/16/17 18:05 Urine Ketones Negative mg/dL (NEGATIVE) 10/16/17 18: Urine Blood Negative (NEGATIVE) 10/16/17 18: Urine Nitrate Negative (NEGATIVE) 10/16/17 18:05 Urine Bilirubin Negative (NEGATIVE) 10/16/17 18: Urine Urobilinogen Normal mg/dL (0.2-1.0) 10/16/17 18:05 Ur Leukocyte Esterase Negative Scott/uL (Negative) 10/16/17 18:05 Urine WBC (Auto) 3 /hpf (0-5) 10/16/17 18:05 Urine RBC (Auto) 2 /hpf (0-3) 10/16/17 18:05 Ur Squamous Epith Cells 3 /hpf (0-5) 10/16/17 18:05 Ur Transition Epith Cell < 1 /hpf (0-3) 10/16/17 18:05 Urine Bacteria Rare (<OCC) 10/16/17 18:05 Urine Opiates Screen Negative (NEGATIVE) 10/16/17 18:05 Urine Methadone Screen Negative (NEGATIVE) 10/16/17 18:05 Ur Barbiturates Screen Negative (NEGATIVE) 10/16/17 18:05 Ur Phencyclidine Scrn Negative (NEGATIVE) 10/16/17 18:05 Ur Amphetamines Screen Negative (NEGATIVE) 10/16/17 18:05 U Benzodiazepines Scrn Negative (NEGATIVE) 10/16/17 18:05 [place] 1.4 mmol/L (0.6-1.2) H 10/17/17 07:19 U Oth Cocaine Metabols Negative (NEGATIVE) 10/16/17 18:05 U Cannabinoids Screen Negative (NEGATIVE) 10/16/17 18:05 Alcohol, Quantitative < 10 mg/dl (0-10) 10/16/17 18:19 - Hospital Course Hospital Course: PMD: Dr. Alan Butt pharmacy: [phone] PMHx: HTN, Bipolar Disorder, Depression PSHx: partial right mastectomy (1999), knee surgery, surgery for urinary incontinence Social Hx: Patient recently moved from [place] to [place] 4-5 months ago. She lives alone. She denies alcohol, tobacco, or any illicit drug use currently or in the past Family Hx: Father from Stroke at age 65, mother at age 93 Medications: [place], Gabapentin, Lisinopril On admission: 67 year old past medical history of depression, bipolar disorder, hypertension, and breast cancer s/p partial masectomy presents to the ED for tremors. Patient states that the tremors started 5 days ago. She notices that her bilateral legs and hands have been shaking uncontrollably during this time. She has not done or taken anything to lessen the tremors. She is also complaining of a mild headache and has been feeling nauseous with a decreased appetite for the past few days. She was recently admitted to [facility] psych unit 3 weeks ago where she was diagnosed and treated for bipolar disorder and started on [place] 450 mg BID daily. She denies any Fevers, chills, chest pain, palpitation, D/C/N/V, dizziness, weight changes, hematuria, dysuria, numbness/tingling, or weakness. During hospital stay: Patient was found to have lithium toxicity. [place] level 2.0 on admission, 1.8 after 2L IVF. Today 1.4, continue hydration IVF NS @125ml/hr was given. Babcock was placed and removed to follow stict In/ Outs. Patient improved. She will need to follow up in the [facility] post discharge. Patient was given Lisinopril 10mg for BP control. Patient is stable for discharge home. She is to follow up with her primary care (Dr. Guzman) and her psychiatrist (LIS) within one week of discharge for post hospital care. She is to resume all of her home medications. She is to take Librium 150mg twice a day by mouth. This was the only medication dose that was changed during her hospital stay. She was given a new script for this medication for 14 days. Patient is to return to the emergency room if symptoms return. All instructions explained to the patient and she agrees. (Please note this is only a summary of hospital events. Please refer to the EMR for full hospital admission details.) Discharge Exam - Head Exam Head Exam: ATRAUMATIC, NORMAL INSPECTION, NORMOCEPHALIC - Eye Exam Eye Exam: EOMI, Normal appearance, PERRL Pupil Exam: NORMAL ACCOMODATION - Respiratory Exam Respiratory Exam: Clear to PA & Lateral, NORMAL BREATHING PATTERN. absent: Respiratory Distress - Cardiovascular Exam Cardiovascular Exam: REGULAR RHYTHM, +S1, +S2 - GI/Abdominal Exam GI & Abdominal Exam: Soft. absent: Distended, Firm, Guarding, Tenderness - Extremities Exam Extremities exam: normal inspection - Back Exam Back exam: NORMAL INSPECTION - Neurological Exam Neurological exam: Alert, CN II-XII Intact, Normal Gait, Oriented x3 - Psychiatric Exam Psychiatric exam: Normal Affect, Normal Mood - Skin Skin Exam: Dry, Intact, Normal Color, Warm Discharge Plan - Discharge Medications Prescriptions: [place] Carbonate [[place] Carbonate 150MG] 150 mg PO BID 14 Days #28 cap - Follow Up Plan Condition: GUARDED Disposition: HOME/ ROUTINE Instructions: Bipolar Disorder, Depression, Adult (DC), [place] Additional Instructions: Patient is stable for discharge home. She is to follow up with her primary care (Dr. Guzman) and her psychiatrist within one week of discharge for post hospital care. She is to resume all of her home medications. She is to take Librium 150mg twice a day by mouth. This was the only medication dose that was changed during her hospital stay. She was given a new script for this medication for 14 days. Patient is to return to the emergency room if symptoms return. All instructions explained to the patient and she agrees. El paciente est estable para el verito domiciliaria. Nabila debe realizar un seguimiento con li atencin primaria (Dr. Guzman) y li psiquiatra dentro de la semana posterior al verito para recibir atencin hospitalaria. Nabila debe reanudar todos yaakov medicamentos en el hogar. Nabila debe pita Librium 150 mg dos veces al da por va oral. Esta fue la irma dosis de medicamento que se cambi oscar li estada en el hospital. Le dieron un nuevo rocío para perfecto medicamento oscar 14 blood. El paciente debe regresar a la laurie de emergencias si los s ntomas regresan. Todas las instrucciones se explican a la paciente y nabila est de acuerdo. Referrals: Verenice Rojas MD [Staff Provider] - <Petra Broderick - Last Filed: 10/18/17 15:59> Provider - Provider Date of Admission: 10/16/17 22:07 Attending physician: Aaron Gaines MD Hospital Course - Lab Results Lab Results: Most Recent Lab Values WBC 8.0 K/uL (4.8-10.8) 10/17/17 07:19 RBC 3.66 Mil/uL (3.80-5.20) L 10/17/17 07:19 Hgb 12.0 g/dL (11.0-16.0) 10/17/17 07:19 Hct 34.8 % (34.0-47.0) 10/17/17 07:19 MCV 95.1 fL (81.0-99.0) 10/17/17 07:19 MCH 32.9 pg (27.0-31.0) H 10/17/17 07:19 MCHC 34.6 g/dL (33.0-37.0) 10/17/17 07:19 RDW 13.6 % (11.5-14.5) 10/17/17 07:19 Plt Count 169 K/uL (130-400) 10/17/17 07:19 MPV 8.8 fL (7.2-11.7) 10/17/17 07:19 Neut % (Auto) 79.1 % (50.0-75.0) H 10/17/17 07:19 Lymph % (Auto) 13.1 % (20.0-40.0) L 10/17/17 07:19 [place] % (Auto) 5.5 % (0.0-10.0) 10/17/17 07:19 Eos % (Auto) 2.0 % (0.0-4.0) 10/17/17 07:19 Baso % (Auto) 0.3 % (0.0-2.0) 10/17/17 07:19 Neut # (Auto) 6.3 K/uL (1.8-7.0) 10/17/17 07:19 Lymph # (Auto) 1.0 K/uL (1.0-4.3) 10/17/17 07:19 [place] # (Auto) 0.4 K/uL (0.0-0.8) 10/17/17 07:19 Eos # (Auto) 0.2 K/uL (0.0-0.7) 10/17/17 07:19 Baso # (Auto) 0.0 K/uL (0.0-0.2) 10/17/17 07:19 Sodium 142 mmol/L (132-148) 10/17/17 07:19 Potassium 3.5 mmol/L (3.6-5.2) L 10/17/17 07:19 Chloride 108 mmol/L (98-107) H 10/17/17 07:19 Carbon Dioxide 26 mmol/L (22-30) 10/17/17 07:19 Anion Gap 12 (10-20) 10/17/17 07:19 BUN 15 mg/dL (7-17) 10/17/17 07:19 Creatinine 1.1 mg/dL (0.7-1.2) 10/17/17 07:19 Est GFR ( Amer) 60 10/17/17 07:19 Est GFR (Non-Af Amer) 49 10/17/17 07:19 Random Glucose 109 mg/dL (65-105) H 10/17/17 07:19 Calcium 8.9 mg/dl (8.6-10.4) 10/17/17 07:19 Magnesium 2.7 mg/dL (1.6-2.3) H 10/16/17 18:19 Total Bilirubin 1.1 mg/dL (0.2-1.3) 10/17/17 07:19 AST 28 U/L (14-36) 10/17/17 07:19 ALT 17 U/L (9-52) 10/17/17 07:19 Alkaline Phosphatase 135 U/L (38-126) H 10/17/17 07:19 Total Protein 6.4 g/dL (6.3-8.3) 10/17/17 07:19 Albumin 3.6 g/dL (3.5-5.0) 10/17/17 07: Globulin 2.9 gm/dL (2.2-3.9) 10/17/17 07: Albumin/Globulin Ratio 1.2 (1.0-2.1) 10/17/17 07: Free T4 0.86 ng/dL (0.78-2.19) 10/16/17 18: TSH 3rd Generation 5.57 mIU/L (0.46-4.68) H 10/17/17 07:19 Urine Color Yellow (YELLOW) 10/16/17 18:05 Urine Clarity Clear (Clear) 10/16/17 18: Urine pH 7.0 (5.0-8.0) 10/16/17 18:05 Ur Specific [place] 1.011 (1.003-1.030) 10/16/17 18:05 Urine Protein Negative mg/dL (NEGATIVE) 10/16/17 18:05 Urine Glucose (UA) Normal mg/dL (Normal) 10/16/17 18:05 Urine Ketones Negative mg/dL (NEGATIVE) 10/16/17 18:05 Urine Blood Negative (NEGATIVE) 10/16/17 18:05 Urine Nitrate Negative (NEGATIVE) 10/16/17 18: Urine Bilirubin Negative (NEGATIVE) 10/16/17 18:05 Urine Urobilinogen Normal mg/dL (0.2-1.0) 10/16/17 18:05 Ur Leukocyte Esterase Negative Scott/uL (Negative) 10/16/17 18:05 Urine WBC (Auto) 3 /hpf (0-5) 10/16/17 18:05 Urine RBC (Auto) 2 /hpf (0-3) 10/16/17 18:05 Ur Squamous Epith Cells 3 /hpf (0-5) 10/16/17 18:05 Ur Transition Epith Cell < 1 /hpf (0-3) 10/16/17 18:05 Urine Bacteria Rare (<OCC) 10/16/17 18:05 Urine Opiates Screen Negative (NEGATIVE) 10/16/17 18:05 Urine Methadone Screen Negative (NEGATIVE) 10/16/17 18:05 Ur Barbiturates Screen Negative (NEGATIVE) 10/16/17 18:05 Ur Phencyclidine Scrn Negative (NEGATIVE) 10/16/17 18:05 Ur Amphetamines Screen Negative (NEGATIVE) 10/16/17 18:05 U Benzodiazepines Scrn Negative (NEGATIVE) 10/16/17 18:05 [place] 1.4 mmol/L (0.6-1.2) H 10/17/17 07:19 U Oth Cocaine Metabols Negative (NEGATIVE) 10/16/17 18:05 U Cannabinoids Screen Negative (NEGATIVE) 10/16/17 18:05 Alcohol, Quantitative < 10 mg/dl (0-10) 10/16/17 18:19 Attending/Attestation - Attestation I have personally seen and examined this patient.: Yes I have fully participated in the care of the patient.: Yes I have reviewed all pertinent clinical information, including history, physical exam and plan: Yes Notes (Text): Feeling good.No complain.Tolerating diet. Plan discussed with the resident.Patient was explained about starting [place] low dose and follow her primary care I agree with the documentation of the resident's assessment and the plan
--- NOTE | 2017-10-19 11:03 | CARD ---
APPROVED REPORT EKG Measurement Heart [id number] <Conclusion> Normal sinus rhythm Normal Electrocardiogram
--- NOTE | 2017-10-20 20:44 | CARD ---
APPROVED REPORT EKG Measurement Heart [id number] <Conclusion> Normal sinus rhythm Normal ECG
== END 2017-10-18 12:45 | disposition home or self-care (01) | DRG 684 ==
LOC: C.ER 16:15 → C.9E 22:07 → C.6T 22:07
PROVIDERS: ADMIT Family Medicine; ATTEND Family Medicine
PROC: 0T9B70Z Drainage of Bladder with Drainage Device, Via Natural or Artificial Opening (ICD-10-PCS; principal; 2017-10-16)
PROC: 3E0234Z Introduction of Serum, Toxoid and Vaccine into Muscle, Percutaneous Approach (ICD-10-PCS; 2017-10-18)
DX: N17.9 Acute kidney failure, unspecified (principal); T43.595A Adverse effect of other antipsychotics and neuroleptics, initial encounter; I10 Essential (primary) hypertension; F31.9 Bipolar disorder, unspecified; R51 Headache; Z85.3 Personal history of malignant neoplasm of breast; R25.1 Tremor, unspecified; Z90.11 Acquired absence of right breast and nipple; M79.7 Fibromyalgia; F41.9 Anxiety disorder, unspecified; Z79.899 Other long term (current) drug therapy; Z23 Encounter for immunization

== ENCOUNTER 2017-10-19 15:21 | Emergency (ER) | payer OTHER ==
[2017-10-19 15:48] VITALS: TEMP 98.4
[2017-10-19 17:19] LABS: BASO % 0.4 % (0.0-2.0); EOS % 0.7 % (0.0-4.0); HEMOGLOBIN 12.6 g/dL (11.0-16.0); LYMPH # 1.1 K/uL (1.0-4.3); MEAN CELL VOLUME 94.5 fL (81.0-99.0); MEAN CORPUSCULAR HEMOGLOBIN 32.2 pg (27.0-31.0); MEAN PLATELET VOLUME 8.8 fL (7.2-11.7); MONO # 0.5 K/uL (0.0-0.8); NEUT # 5.2 K/uL (1.8-7.0); NEUT % 75.9 % (50.0-75.0); RBC 3.91 Mil/uL (3.80-5.20); RED CELL DISTRIBUTION WIDTH 14.2 % (11.5-14.5); WHITE BLOOD COUNT 6.9 K/uL (4.8-10.8)
[2017-10-19 17:54] LABS: ALB/GLOB RATIO 1.1 (1.0-2.1); ALBUMIN 3.8 g/dL (3.5-5.0); ALT/SGPT 23 U/L (9-52); AST/SGOT 46 U/L (14-36); BLOOD UREA NITROGEN 9 mg/dL (7-17); CALCIUM 9.4 mg/dl (8.6-10.4); GFR AFRICAN-AMERICAN > 60; GFR NON-AFRICAN AMERICAN > 60
--- NOTE | 2017-10-19 18:20 | C.PDOC ---
History Of Present Illness 67 year old female, with PMHx of bipolar disorder, HTN, and breast CA, presents to ED for evaluation of tremors. Grandson described tremors as her entire body shaking for 2 seconds, without losing consciousness. No convulsions. Pt was evaluated 2 days ago for tremors, believed to be secondary to lithium toxicity and lithium was stopped till last night. Pt was restarted the [place] and took one dose last night and one dose this morning. She did not have tremors yesterday, but tremors started again today. Denies fever, chest pain, SOB, dizziness, visual changes, abdominal pain or headache. 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 Limitations: no limitations Onset/Duration Of Symptoms: Days Current Symptoms Are (Timing): Still Present Recent travel outside of the [place]: No Additional History Per: Patient Past Medical History Reviewed: Historical Data, Nursing Documentation, Vital Signs Vital Signs: Last Vital Signs Temp 98.4 F 10/19/17 15:44 Pulse 74 10/19/17 19:08 Resp 20 10/19/17 19:08 BP 138/82 10/19/17 19:08 Pulse Ox 98 10/19/17 19:08 - Medical History PMH: Anxiety, Bipolar Disorder, Depression, HTN Surgical History: Appendectomy Other Surgeries: Knee surgery, right breast lumpectomy, bladder surgery for urinary incontinence - [facility] Procedures DRAINAGE OF BLADDER WITH DRAINAGE DEVICE, VIA OPENING (10/16/17) GROUP PSYCHOTHERAPY (09/29/17) INTRODUCTION OF SERUM/TOX/VACCINE INTO MUSCLE, PERC APPROACH (10/16/17) Family History: States: Stroke - Social History Hx Tobacco Use: No Hx Alcohol Use: No Hx Substance Use: No - Immunization History Hx Tetanus Toxoid Vaccination: No Hx Influenza Vaccination: Yes Hx Pneumococcal Vaccination: No Review Of Systems Except As Marked, All Systems Reviewed And Found Negative. Constitutional: Negative for: Fever, Chills Cardiovascular: Negative for: Chest Pain Respiratory: Negative for: Shortness of Breath Neurological: Positive for: Other (tremors). Negative for: Headache, Dizziness Physical Exam - Physical Exam Appears: Non-toxic, No Acute Distress Skin: Normal Color, Warm, Dry Head: Atraumatic, Normacephalic Eye(s): bilateral: Normal Inspection, PERRL, EOMI Nose: Normal Oral Mucosa: Moist Neck: Normal ROM, Supple Chest: Symmetrical Cardiovascular: Rhythm Regular Respiratory: Normal Breath Sounds, No Rales, No Rhonchi, No Wheezing Gastrointestinal/Abdominal: Soft, No Tenderness Extremity: Normal ROM Neurological/Psych: Oriented x3, Normal Speech, Normal Cranial Nerves (no focal deficits), Other (total body shiver like movement noted for 1 second) ED Course And Treatment - Laboratory Results Result Diagrams: 10/19/17 17:15 10/19/17 17:15 O2 Sat by Pulse Oximetry: 99 (RA) Pulse Ox Interpretation: Normal Progress Note: Blood work ordered and reviewed. Case discussed with Dr Rojas, psychiatrist who evaluted pt at admission two days ago, who notes tremor can be a side effect of meidcation. He instructs to stop the meidcation and to f/u outpt at [facility]. No new medication at this time. Case discussed with Dr Ybarra, agreed upon plan and discharge. Patient is being discharged home, with instructions to follow up with PMD in 1-2 days further evaluation. Return to ED if symptoms persist or worsen. Disposition - Disposition Disposition: HOME/ ROUTINE Disposition Time: 18:49 Condition: STABLE Additional Instructions: Stop the [place]. Take Benadryl for anxiety. Follow up with the psychiatrist at the [facility] as schedule. Return to ER if symptoms persist or worsen. 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 - Scribe Statement The provider has reviewed the documentation as recorded by the Scribe Avril Damon All medical record entries made by the Giancarlo were at my direction and personally dictated by me. I have reviewed the chart and agree that the record accurately reflects my personal performance of the history, physical exam, medical decision making, and the department course for this patient. I have also personally directed, reviewed, and agree with the discharge instructions and disposition.
--- NOTE | 2017-10-19 18:21 | C.PDOC ---
Time Seen by Provider: 10/19/17 16:31 Chief Complaint (Nursing): Allergic Reaction Past Medical History Vital Signs: Last Vital Signs Temp 98.4 F 10/19/17 15:44 Pulse 79 10/19/17 15:44 Resp 16 10/19/17 15:44 BP 158/91 H 10/19/17 15:44 Pulse Ox 99 10/19/17 15:44 - Medical History PMH: Anxiety, Depression, HTN - [facility] Procedures GROUP PSYCHOTHERAPY (09/29/17) Family History: States: Unknown Family Hx - Social History Hx Tobacco Use: No Hx Alcohol Use: No Hx Substance Use: No - Immunization History Hx Tetanus Toxoid Vaccination: No Hx Influenza Vaccination: Yes Hx Pneumococcal Vaccination: No ED Course And Treatment - Laboratory Results Result Diagrams: 10/19/17 17:15 10/19/17 17:15 O2 Sat by Pulse Oximetry: 99 Disposition - Disposition Forms: [employer] (Austrian)
[2017-10-19 19:09] VITALS: BP 138/82; PULSE 74; RESP 20
[2017-10-21 00:52] VITALS: O2SAT 99
== END 2017-10-19 19:09 | disposition home or self-care (01) ==
LOC: C.ER 15:21
DX: R25.1 Tremor, unspecified (principal); I10 Essential (primary) hypertension

== ENCOUNTER 2018-03-11 19:27 | Emergency (ER) | payer OTHER ==
[2018-03-11 20:28] VITALS: BMI 30.7
--- NOTE | 2018-03-11 20:55 | C.PDOC ---
History Of Present Illness The patient presents to the ED for evaluation of diffuse body aches and abdominal pain which has worsened over the last couple days. Patient is also complaining of generalized arthritic pain. She reports some nausea. Patient denies fever, chills, vomiting. Time Seen by Provider: 03/11/18 20:54 Chief Complaint (Nursing): Abdominal Pain History Per: Patient History/Exam Limitations: no limitations Onset/Duration Of Symptoms: Days (2) Current Symptoms Are (Timing): Worse Severity: Mild Pain Scale Rating Of: 4 Location Of Pain/Discomfort: Diffuse Radiation Of Pain To:: None Quality Of Discomfort: "Pain" Associated Symptoms: Nausea. denies: Fever, Chills, Vomiting Exacerbating Factors: None Alleviating Factors: None Last Bowel Movement: Today Recent travel outside of the [place]: No Additional History Per: Patient Abnormal Vaginal Bleeding: No Past Medical History Reviewed: Historical Data, Nursing Documentation, Vital Signs Vital Signs: Last Vital Signs Temp 97.8 F 03/12/18 00:07 Pulse 79 03/12/18 00:07 Resp 14 03/12/18 00:07 BP 157/84 H 03/12/18 00:07 Pulse Ox 100 03/12/18 00:07 - Medical History PMH: Anxiety, Bipolar Disorder, Depression, HTN Surgical History: Appendectomy - [facility] Procedures DRAINAGE OF BLADDER WITH DRAINAGE DEVICE, VIA OPENING (10/16/17) GROUP PSYCHOTHERAPY (09/29/17) INTRODUCTION OF SERUM/TOX/VACCINE INTO MUSCLE, PERC APPROACH (10/16/17) Family History: States: Unknown Family Hx, Stroke - Social History Hx Tobacco Use: No Hx Alcohol Use: No Hx Substance Use: No - Immunization History Hx Tetanus Toxoid Vaccination: No Hx Influenza Vaccination: Yes Hx Pneumococcal Vaccination: No Review Of Systems Constitutional: Negative for: Fever, Chills Cardiovascular: Negative for: Chest Pain, Palpitations Respiratory: Negative for: Cough, Shortness of Breath Gastrointestinal: Positive for: Nausea, Abdominal Pain. Negative for: Vomiting , Diarrhea Genitourinary: Negative for: Dysuria, Frequency, Hematuria Musculoskeletal: Positive for: Other (diffuse gody aches, generalized arthritic pain ) Skin: Negative for: Rash, Lesions, Jaundice, Bruising Neurological: Negative for: Weakness, Numbness Physical Exam - Physical Exam Appears: Non-toxic, No Acute Distress Skin: Warm, Dry Head: Normacephalic Eye(s): bilateral: Normal Inspection Oral Mucosa: Moist Neck: Supple Chest: Symmetrical, No Deformity, No Tenderness Cardiovascular: Rhythm Regular, No Murmur Respiratory: No Rales, No Rhonchi, No Wheezing Gastrointestinal/Abdominal: Soft, Tenderness (mild, diffuse ), No Guarding, No Rebound Extremity: Normal ROM, Capillary Refill (less than 2 seconds ), Other ( arthritic changes noted ) Neurological/Psych: Oriented x3 ED Course And Treatment - Laboratory Results Result Diagrams: 03/11/18 21:19 03/11/18 21:19 ECG: Interpreted By Me, Viewed By Me ECG Rhythm: Sinus Rhythm (70), Nonspecific Changes O2 Sat by Pulse Oximetry: 98 (on RA) Pulse Ox Interpretation: Normal Progress Note: Bloodwork, urinalysis, EKG ordered and reviewed. Morphine IVP, Protonix IVP, Zofran IVP and IV Fluids given. 11:20 PM pt now stated that she has been having some black stools for about 2-3 days. Occult stool sent. On exam - brown stool Reevaluation Time: 00:39 Reassessment Condition: Improved Medical Decision Making Medical Decision Making: Upon provider reevaluation patient is feeling better, is medically stable, and requires no further treatment in the ED at this time. Patient will be discharged home with Rx for miralax . Counseling was provided and all questions were answered regarding diagnosis and need for follow up with dr Ashley. There is agreement to discharge plan. Return if symptoms persist or worsen. Disposition Counseled Patient/Family Regarding: Studies Performed, Diagnosis, Need For Followup, Rx Given - Disposition Referrals: Alan Ashley MD [Medical Doctor] - Disposition: HOME/ ROUTINE Disposition Time: 20:54 Condition: FAIR Additional Instructions: Please return if symptoms recur Prescriptions: Polyethylene Glycol 3350 [Miralax] 17 gm PO DAILY #270 ml Instructions: Acute Abdomen (Belly Pain), Adult (DC), Constipation, Adult (DC) Forms: [facility] (Cypriot) Print Language: SINHALA - Clinical Impression Clinical Impression: Abdominal pain, Constipation - Scribe Statement The provider has reviewed the documentation as recorded by the Scribe (Katelynn Damon) Provider Attestation: All medical record entries made by the Scribe were at my direction and personally dictated by me. I have reviewed the chart and agree that the record accurately reflects my personal performance of the history, physical exam, medical decision making, and the department course for this patient. I have also personally directed, reviewed, and agree with the discharge instructions and disposition.
[2018-03-11] MEDS ORDERED: Sodium Chloride 0.9% 1,000 ML IV ONE (21:12)
[2018-03-11] MEDS ORDERED: Sodium Chloride 0.9% 1,000 ML ONE (21:22)
[2018-03-11 21:29] LABS: BASO % 0.4 % (0.0-2.0); EOS # 0.1 K/uL (0.0-0.7); EOS % 2.4 % (0.0-4.0); LYMPH % 22.6 % (20.0-40.0); MEAN CELL VOLUME 95.3 fL (81.0-99.0); MEAN CORPUSCULAR HEMOGLOBIN 32.2 pg (27.0-31.0); MEAN CORPUSCULAR HGB CONC 33.8 g/dL (33.0-37.0); MEAN PLATELET VOLUME 9.3 fL (7.2-11.7); MONO # 0.4 K/uL (0.0-0.8); MONO % 9.3 % (0.0-10.0); NEUT % 65.3 % (50.0-75.0); NRBC % 0.1 % (0.0-2.0); RBC 2.79 Mil/uL (3.80-5.20); RED CELL DISTRIBUTION WIDTH 13.2 % (11.5-14.5); WHITE BLOOD COUNT 4.6 K/uL (4.8-10.8)
[2018-03-11 21:38] LABS: INR 1.1; PROTHROMBIN TIME 12.4 SECONDS (9.7-12.2)
[2018-03-11 21:55] LABS: ALB/GLOB RATIO 1.4 (1.0-2.1); CALCIUM 8.7 mg/dl (8.6-10.4)
[2018-03-11 22:08] LABS: SQUAMOUS EPITHIAL 1 /hpf (0-5); URINE BACTERIA RARE (<OCC); URINE BILIRUBIN NEGATIVE (NEGATIVE); URINE BLOOD NEGATIVE (NEGATIVE); URINE CLARITY Clear (Clear); URINE COLOR Straw (YELLOW); URINE GLUCOSE (UA) NORMAL (Normal); URINE LEUKOCYTE ESTERASE NEG Leu/uL (Negative); URINE PROTEIN NEGATIVE (NEGATIVE); URINE UROBILINOGEN NORMAL mg/dL (0.2-1.0)
[2018-03-11 22:32] VITALS: RESP 14
[2018-03-11] MEDS ORDERED: Iodixanol 320 MG/ML 100 ML BOTTLE IV ONE (23:44)
[2018-03-12 00:07] VITALS: BP 157/84; PULSE 79; TEMP 97.8
[2018-03-12] MEDS ORDERED: Magnesium Citrate Oral SOL (300 ml) PO ONE (00:41)
[2018-03-12 00:42] VITALS: O2SAT 98
[2018-03-12] MEDS ORDERED: Magnesium Citrate Oral SOL (300 ml) ONE (00:48)
--- NOTE | 2018-03-12 09:06 | CT ---
Date of service: 03/11/2018 PROCEDURE: CT Abdomen and Pelvis with intravenous contrast HISTORY: Abdominal pain COMPARISON: None. TECHNIQUE: Multiple contiguous axial images were performed through the abdomen and pelvis with the use of intravenous contrast. Subsequently, sagittal and coronal reformatted images were obtained. Radiation dose: Total exam DLP = 718 mGy-cm. This CT exam was performed using one or more of the following dose reduction techniques: Automated exposure control, adjustment of the mA and/or kV according to patient size, and/or use of iterative reconstruction technique. FINDINGS: LOWER THORAX: Unremarkable. LIVER: Unremarkable. No gross lesion or ductal dilatation. GALLBLADDER AND BILE DUCTS: Unremarkable. PANCREAS: Unremarkable. No gross lesion or ductal dilatation. SPLEEN: Unremarkable. ADRENALS: Unremarkable. No mass. KIDNEYS AND URETERS: Few scattered low-attenuation lesions seen within the left kidney. For example, in the midpole measuring 1.7 centimeters demonstrating a Hounsfield unit attenuation of 10 and in the lower pole measuring 1.3 centimeters demonstrating a Hounsfield unit attenuation of 7 suggestive for cysts. VASCULATURE: Unremarkable. No aortic aneurysm. BOWEL: Moderate fecal retention in the colon. Diverticulosis. APPENDIX: Appendix not well visualized. PERITONEUM: Unremarkable. No free fluid. No free air. LYMPH NODES: Unremarkable. No enlarged lymph nodes. BLADDER: Unremarkable. REPRODUCTIVE: Unremarkable. BONES: Degenerative changes in the spine. OTHER FINDINGS: Vascular calcifications. IMPRESSION: Moderate fecal retention in the colon. Additional findings as above. These findings were preliminarily reported at 12:35 a.m. on 03/12/[address] Jose C Casillas from [facility].
--- NOTE | 2018-03-12 14:41 | CARD ---
APPROVED REPORT Date of service: 03/11/2018 EKG Measurement Heart [id number] <Conclusion> Normal sinus rhythm Normal ECG
== END 2018-03-12 00:54 | disposition home or self-care (01) ==
LOC: C.ER 19:27
DX: K59.00 Constipation, unspecified (principal); R10.9 Unspecified abdominal pain
CPT/HCPCS: 74177; 80053; 81001; 83690; 85025; 85610; 85730; 93005; 96361; 96374; 96375; 99285; C9113; G0328; J2270; J2405; J7030; Q9967

== ENCOUNTER 2018-04-19 14:31 | Inpatient (IN) | payer OTHER ==
[2018-04-19 14:39] VITALS: BMI 30.4
[2018-04-19] MEDS ORDERED: Sodium Chloride 0.9% 1,000 ML IV STA (15:56)
--- NOTE | 2018-04-19 16:05 | C.PDOC ---
History Of Present Illness 68 years old female with PMHx of HTN, anxiety, bipolar disorder, Lupus, and Sjgren's syndrome, presents to ED for complaints of headache and body aches that began 5 days ago. Patient states headache is right sided involving scalp, face, and neck. Patient describes symptoms as severe and constant. Patient also reports taking acetaminophen this morning. Denies fever, neck stiffness, vomiting, vision or taste changes, or ear ringing. PMD: Adrina Ziegler Time Seen by Provider: 04/19/18 14:57 Chief Complaint (Nursing): Headache History Per: Patient History/Exam Limitations: no limitations Onset/Duration Of Symptoms: Hrs Current Symptoms Are (Timing): Still Present Preceeding Symptoms: None Recent travel outside of the [place]: No Past Medical History Reviewed: Historical Data, Nursing Documentation, Vital Signs Vital Signs: Last Vital Signs Temp 97.6 F 04/19/18 14:39 Pulse 87 04/19/18 14:39 Resp 18 04/19/18 14:39 BP 110/70 04/19/18 14:39 Pulse Ox 100 04/19/18 14:39 - Medical History PMH: Anxiety, Bipolar Disorder, Depression, HTN Surgical History: Appendectomy - [facility] Procedures DRAINAGE OF BLADDER WITH DRAINAGE DEVICE, VIA OPENING (10/16/17) GROUP PSYCHOTHERAPY (09/29/17) INTRODUCTION OF SERUM/TOX/VACCINE INTO MUSCLE, PERC APPROACH (10/16/17) Family History: States: Unknown Family Hx, Stroke - Social History Hx Tobacco Use: No Hx Alcohol Use: No Hx Substance Use: No - Immunization History Hx Tetanus Toxoid Vaccination: No Hx Influenza Vaccination: Yes Hx Pneumococcal Vaccination: No Review Of Systems Except As Marked, All Systems Reviewed And Found Negative. Constitutional: Negative for: Fever Gastrointestinal: Negative for: Vomiting Physical Exam - Physical Exam Additional Physical Exam Comments: Constitutional: No acute distress. Head: Normocephalic. Atraumatic. Equal temporal pulses. Eyes: PERRL. No ptosis. ENT: Moist mucous membranes. Neck: Supple. No bruits. No pulsatile mass. Cardiovascular: Regular rate. Radial pulse 2+ bilaterally. Chest: No tenderness. Respiratory: Clear to auscultation bilaterally. GI: Soft. Nontender. Nondistended. Back: No CVA tenderness. Musculoskeletal: No tenderness or swelling of extremities. Skin: No rash. Neurologic: Alert, no focal deficit. Motor 5/5 x4. Intact sensation to light bilaterally. ED Course And Treatment - Laboratory Results Result Diagrams: 04/19/18 16:08 04/19/18 16:08 O2 Sat by Pulse Oximetry: 100 (RA) Pulse Ox Interpretation: Normal - Other Rad CXR X-Ray: Viewed By Me, Read By Radiologist Interpretation: HISTORY: headache. COMPARISON: None available. TECHNIQUE: Chest, one view. FINDINGS: LUNGS: Patchy opacity within the medial right upper lobe of unclear significance; infiltrate is suspected. Please note that chest x-ray has limited sensitivity for the detection of pulmonary masses. PLEURA: No significant pleural effusion identified. No definite pneumothorax . CARDIOVASCULAR: Heart size appears top normal. Ectatic aorta. Atherosclerotic calcifications. OSSEOUS STRUCTURES: Degenerative changes. VISUALIZED UPPER ABDOMEN: Unremarkable. OTHER FINDINGS: None. IMPRESSION: Patchy opacity within the medial right upper lobe of unclear significance; infiltrate is suspected. - CT Scan/US CT Head Other Rad Studies (CT/US): Read By Radiologist, Radiology Report Reviewed CT/US Interpretation: FINDINGS: HEMORRHAGE: No intracranial hemorrhage. BRAIN: Diffuse atrophy with prominence of the ventricles and sulci noted. No mass effect or edema. Intracranial atherosclerosis. The carballo-white matter differentiation appears intact. Bilateral basal ganglia calcifications. Please note that MRI with diffusion imaging is more sensitive in the detection of acute ischemic event. VENTRICLES: No hydrocephalus. CALVARIUM: Unremarkable. PARANASAL SINUSES: Unremarkable as visualized. No significant inflammatory changes. MASTOID AIR CELLS: Unremarkable as visualized. No inflammatory changes. OTHER FINDINGS: Postsurgical changes, left orbit. IMPRESSION: No acute intracranial pathology identified. CTA Head/Neck Other Rad Studies (CT/US): Read By Radiologist, Radiology Report Reviewed CT/US Interpretation: Date of service: 04/19/2018. PROCEDURE: CT Angiography of the neck and brain. HISTORY: headache, neck pain, scalp pain, h/o Lupus. COMPARISON: None available. TECHNIQUE: CT angiography of the intracranial arteries was performed. Coronal and sagittal maximum intensity projection reformated images were generated. This CT exam was performed using one or more of the following dose reduction techniques: Automated exposure control, adjustment of the mA and/or kV according to patient size, and/or use of iterative reconstruction technique. Total exam DLP: 482.5. FINDINGS: RIGHT CAROTID ARTERIES: Common Carotid Artery: Normal. Carotid Bifurcation: Mild atherosclerotic disease. Internal Carotid Artery: Mild atherosclerotic disease. Al. External Carotid Artery (proximal branches): Normal. LEFT CAROTID ARTERIES: Common Carotid Artery: Normal. Carotid Bifurcation: Mild atherosclerotic disease and foci of punctate calcification noted. Internal Carotid Artery:Foci of atherosclerotic calcification at the distal portion of the internal carotid arteries. External Carotid Artery (proximal branches): Normal. VERTEBRAL ARTERIES: Right Vertebral Artery: Normal. Left Vertebral Artery: Normal. INTERNAL CEREBRAL ARTERIES: Unremarkable. The skull base, petrous, cavernous and supraclinoid segments are bilaterally widely patent. ANTERIOR CEREBRAL ARTERIES: Unremarkable. A1 and A2 segments are widely patent. Smaller distal branches unremarkable, as visualized. MIDDLE CEREBRAL ARTERIES: Unremarkable. M1 and M2 segments are widely patent. Perisylvian branches grossly symmetric. POSTERIOR CIRCULATION: Basilar Artery: Unremarkable. Distal Vertebral Arteries: Unremarkable. Posterior Cerebral Arteries: Unremarkable. Posterior Inferior Cerebellar Arteries: Unremarkable. ANEURYSM/ VASCULAR MALFORMATIONS: None. OTHER FINDINGS: None. IMPRESSION: No evidence of arterial occlusion or critical stenosis. No evidence of aneurysm or vascular anomaly. Medical Decision Making Medical Decision Making: Plan: * CT Angio * CT Head * Blood work * CXR * Morphine * IV fluids * Toradol Dr. Ziegler accepts to his service. Antibiotics initiated. Blood cultures ordered. Resident hand off given. Disposition Discussed With : Margarito Ziegler Jr. Doctor Will See Patient In The: Hospital - Disposition Disposition: HOSPITALIZED Disposition Time: 17:23 Condition: FAIR Forms: [employer] (Hungarian) - POA Core Measure Indicators: Pneumonia - Clinical Impression Clinical Impression: Pneumonia - Scribe Statement The provider has reviewed the documentation as recorded by the Sylviaibwenceslao Anna All medical record entries made by the Sylviaibwenceslao were at my direction and personally dictated by me. I have reviewed the chart and agree that the record accurately reflects my personal performance of the history, physical exam, medical decision making, and the department course for this patient. I have also personally directed, reviewed, and agree with the discharge instructions and disposition.
[2018-04-19 16:11] LABS: BASO % 0.4 % (0.0-2.0); EOS # 0.1 K/uL (0.0-0.7); EOS % 2.4 % (0.0-4.0); HEMOGLOBIN 10.5 g/dL (11.0-16.0); LYMPH # 0.8 K/uL (1.0-4.3); LYMPH % 27.1 % (20.0-40.0); MEAN CELL VOLUME 94.2 fL (81.0-99.0); MEAN CORPUSCULAR HEMOGLOBIN 31.9 pg (27.0-31.0); MEAN CORPUSCULAR HGB CONC 33.9 g/dL (33.0-37.0); MEAN PLATELET VOLUME 8.8 fL (7.2-11.7); MONO # 0.3 K/uL (0.0-0.8); MONO % 9.7 % (0.0-10.0); NEUT # 1.9 K/uL (1.8-7.0); NEUT % 60.4 % (50.0-75.0); RBC 3.29 Mil/uL (3.80-5.20); WHITE BLOOD COUNT 3.1 K/uL (4.8-10.8)
[2018-04-19] MEDS ORDERED: Sodium Chloride 0.9% 1,000 ML ONE (16:12)
[2018-04-19 16:21] LABS: INR 1.2; PROTHROMBIN TIME 12.8 SECONDS (9.7-12.2)
[2018-04-19] MEDS ORDERED: Iodixanol 320 MG/ML 100 ML BOTTLE IV ONE (16:24)
[2018-04-19 16:26] LABS: ALB/GLOB RATIO 1.5 (1.0-2.1); CALCIUM 9.2 mg/dl (8.6-10.4)
--- NOTE | 2018-04-19 16:40 | CT ---
Date of service: 04/19/2018 PROCEDURE: CT HEAD WITHOUT CONTRAST. HISTORY: headache COMPARISON: Noncontrast head CT performed 10/16/17 TECHNIQUE: Axial computed tomography images were obtained through the head/brain without intravenous contrast. Radiation dose: Total exam DLP = 1068.95 mGy-cm. This CT exam was performed using one or more of the following dose reduction techniques: Automated exposure control, adjustment of the mA and/or kV according to patient size, and/or use of iterative reconstruction technique. FINDINGS: HEMORRHAGE: No intracranial hemorrhage. BRAIN: Diffuse atrophy with prominence of the ventricles and sulci noted. No mass effect or edema. Intracranial atherosclerosis. The carballo-white matter differentiation appears intact. Bilateral basal ganglia calcifications. Please note that MRI with diffusion imaging is more sensitive in the detection of acute ischemic event. VENTRICLES: No hydrocephalus. CALVARIUM: Unremarkable. PARANASAL SINUSES: Unremarkable as visualized. No significant inflammatory changes. MASTOID AIR CELLS: Unremarkable as visualized. No inflammatory changes. OTHER FINDINGS: Postsurgical changes, left orbit. IMPRESSION: No acute intracranial pathology identified.
--- NOTE | 2018-04-19 17:20 | RAD ---
HISTORY: headache COMPARISON: None available. TECHNIQUE: Chest, one view. FINDINGS: LUNGS: Patchy opacity within the medial right upper lobe of unclear significance; infiltrate is suspected. Please note that chest x-ray has limited sensitivity for the detection of pulmonary masses. PLEURA: No significant pleural effusion identified. No definite pneumothorax . CARDIOVASCULAR: Heart size appears top normal. Ectatic aorta. Atherosclerotic calcifications. OSSEOUS STRUCTURES: Degenerative changes. VISUALIZED UPPER ABDOMEN: Unremarkable. OTHER FINDINGS: None. IMPRESSION: Patchy opacity within the medial right upper lobe of unclear significance; infiltrate is suspected.
--- NOTE | 2018-04-19 18:05 | CT ---
Date of service: 04/19/2018 PROCEDURE: CT Angiography of the neck and brain. HISTORY: headache, neck pain, scalp pain, h/o Lupus COMPARISON: None available. TECHNIQUE: CT angiography of the intracranial arteries was performed. Coronal and sagittal maximum intensity projection reformated images were generated. This CT exam was performed using one or more of the following dose reduction techniques: Automated exposure control, adjustment of the mA and/or kV according to patient size, and/or use of iterative reconstruction technique. Total exam DLP: 482.5 FINDINGS: RIGHT CAROTID ARTERIES: Common Carotid Artery: Normal. Carotid Bifurcation: Mild atherosclerotic disease. Internal Carotid Artery: Mild atherosclerotic disease. Al. External Carotid Artery (proximal branches): Normal. LEFT CAROTID ARTERIES: Common Carotid Artery: Normal. Carotid Bifurcation: Mild atherosclerotic disease and foci of punctate calcification noted Internal Carotid Artery:Foci of atherosclerotic calcification at the distal portion of the internal carotid arteries. External Carotid Artery (proximal branches): Normal. VERTEBRAL ARTERIES: Right Vertebral Artery: Normal. Left Vertebral Artery: Normal. INTERNAL CEREBRAL ARTERIES: Unremarkable. The skull base, petrous, cavernous and supraclinoid segments are bilaterally widely patent. ANTERIOR CEREBRAL ARTERIES: Unremarkable. A1 and A2 segments are widely patent. Smaller distal branches unremarkable, as visualized. MIDDLE CEREBRAL ARTERIES: Unremarkable. M1 and M2 segments are widely patent. Perisylvian branches grossly symmetric. POSTERIOR CIRCULATION: Basilar Artery: Unremarkable. Distal Vertebral Arteries: Unremarkable. Posterior Cerebral Arteries: Unremarkable. Posterior Inferior Cerebellar Arteries: Unremarkable. ANEURYSM/ VASCULAR MALFORMATIONS: None. OTHER FINDINGS: None. IMPRESSION: No evidence of arterial occlusion or critical stenosis. No evidence of aneurysm or vascular anomaly.
[2018-04-19] MEDS ORDERED: Azithromycin 500 MG in Sodium Chloride 0.9% 250 ML IVPB STA (18:36)
[2018-04-19] MEDS ORDERED: cefTRIAXone 1 gm 1 GM/100 ML BAG IVPB ONE (18:53)
[2018-04-19] MEDS ORDERED: Azithromycin 500mg/250ML NS 500 MG/250 ML BAG IVPB ONE (19:42)
--- NOTE | 2018-04-20 01:00 | CP.PCM.HP ---
History of Present Illness - History of Present Illness History of Present Illness: Pt is a 68yo F PMH HTN, anxiety, bipolar, lupus, sjogrens who presents to ED complaining of R-sided headache for the past 5 days. She reports an intense pain that she rates 8/10, worse when laying down. She took advil and tylenol at home with no relief. She reports some ringing in the R ear. She denies any dizziness, blurry vision, chest pain, shortness of breath, nausea, vomiting, diarrhea, dysuria. She also reports associated fatigue and 30lb weight loss over the past 9 months. She reports tingling and buring in the b/l feet and hands for the past 9 months. In the ED CXR showed infiltrate in RUL. Pt was given azithromycin and ceftriaxone. SxH: appenectomy SocH: denies tobacco, alcohol, recreational drug use FamH: father , CVA Allergies: lithium Meds: zolpidem 10 HS, trazodone 50 HS, lisinopril/HCTZ 10/12.5, plaquenil 200 BID, gabapentin 300 TID PMD: Ziegler Present on Admission - Present on Admission Any Indicators Present on Admission: No Review of Systems - Review of Systems Review of Systems: as per HPI Past Patient History - Infectious Disease Hx of Infectious Diseases: None - Past Medical History & Family History Past Medical History?: Yes - Past Social History Smoking Status: Never Smoked - CARDIAC Hx Hypertension: Yes - NEUROLOGICAL Other/Comment: Hx of fibromyalgia - MUSCULOSKELETAL/RHEUMATOLOGICAL Hx Falls: No - PSYCHIATRIC Hx Anxiety: Yes Hx Bipolar Disorder: Yes Hx Depression: Yes Hx Substance Use: No - SURGICAL HISTORY Hx Appendectomy: Yes - ANESTHESIA Hx Anesthesia: Yes Hx Anesthesia Reactions: No Hx Malignant Hyperthermia: No Meds Allergies/Adverse Reactions: Allergies Allergy/AdvReac Type Severity Reaction Status Date / Time lithium AdvReac FATIGUE Verified 04/19/18 16:26 Physical Exam - Constitutional Appears: Well, No Acute Distress - Head Exam Head Exam: ATRAUMATIC, NORMOCEPHALIC - Eye Exam Eye Exam: EOMI, Normal appearance, PERRL Pupil Exam: NORMAL ACCOMODATION - ENT Exam ENT Exam: Mucous Membranes Moist, Normal Exam - Respiratory Exam Respiratory Exam: Clear to Auscultation Bilateral, NORMAL BREATHING PATTERN. absent: Rales, Rhonchi, Wheezes - Cardiovascular Exam Cardiovascular Exam: REGULAR RHYTHM, RRR, +S1, +S2. absent: Gallop, Rubs, Systolic Murmur - GI/Abdominal Exam GI & Abdominal Exam: Normal Bowel Sounds, Soft. absent: Distended, Firm, Ten derness - Extremities Exam Extremities exam: Positive for: normal inspection. Negative for: pedal edema - Neurological Exam Neurological exam: Alert, CN II-XII Intact, Oriented x3 - Psychiatric Exam Psychiatric exam: Normal Affect, Normal Mood Results - Vital Signs Recent Vital Signs: Last Vital Signs Temp 98.1 F 04/19/18 22:40 Pulse 75 04/19/18 22:40 Resp 18 04/19/18 22:40 BP 128/70 04/19/18 22:40 Pulse Ox 99 04/19/18 22:40 - Labs Result Diagrams: 04/19/18 16:08 04/19/18 16:08 Labs: Laboratory Results - last 24 hr 04/19/18 04/19/18 04/19/18 16:08 16:08 16:08 WBC 3.1 L RBC 3.29 L Hgb 10.5 L Hct 31.0 L MCV 94.2 MCH 31.9 H MCHC 33.9 RDW 13.0 Plt Count 172 MPV 8.8 Neut % (Auto) 60.4 Lymph % (Auto) 27.1 Gem % (Auto) 9.7 Eos % (Auto) 2.4 Baso % (Auto) 0.4 Neut # (Auto) 1.9 Lymph # (Auto) 0.8 L Gem # (Auto) 0.3 Eos # (Auto) 0.1 Baso # (Auto) 0.0 ESR 10 PT 12.8 H INR 1.2 APTT 33 Sodium 139 Potassium 4.2 Chloride 100 Carbon Dioxide 31 H Anion Gap 13 BUN 19 H Creatinine 1.3 H Est GFR ( Amer) 49 Est GFR (Non-Af Amer) 40 POC Glucose (mg/dL) Random Glucose 100 Calcium 9.2 Total Bilirubin 0.8 AST 21 ALT 19 Alkaline Phosphatase 113 Total Protein 6.7 Albumin 4.0 Globulin 2.7 Albumin/Globulin Ratio 1.5 04/19/18 22:11 WBC RBC Hgb Hct MCV MCH MCHC RDW Plt Count MPV Neut % (Auto) Lymph % (Auto) Gem % (Auto) Eos % (Auto) Baso % (Auto) Neut # (Auto) Lymph # (Auto) Gem # (Auto) Eos # (Auto) Baso # (Auto) ESR PT INR APTT Sodium Potassium Chloride Carbon Dioxide Anion Gap BUN Creatinine Est GFR ( Amer) Est GFR (Non-Af Amer) POC Glucose (mg/dL) 116 H Random Glucose Calcium Total Bilirubin AST ALT Alkaline Phosphatase Total Protein Albumin Globulin Albumin/Globulin Ratio Assessment & Plan - Assessment and Plan (Free Text) Assessment: Pt is a 68yo F PMH HTN, anxiety, bipolar, lupus, sjogrens who presents to ED complaining of R-sided headache who is admitted for further evaluation and treatment of right upper lobe infiltrate Plan: RUL Infiltrate - afebrile - WBC 3.1 - CXR: patchy opacity suspicious of infiltrate in medial RUL - start azithro 500 IV daily - start rocephin 1g IV daily - r/o TB - f/u AFP sputum cultures q8h x4 - repeat CXR in AM - airborn isolation Headache - AAOx3, unremarkable neuro exam - CT head negative - CT angio negative - tylenol PRN HTN - BP - start home lisinopril/HCTZ Anxiety - restart home zolpidem - restart home trazodone Lupus - restart home plaquenil 200 BID Sjogrens - restart home plaquenil 200 BID PPX: Pepcid 20 BID Lovenox 40 SC HHD Case reviewed and plan discussed with Dr. Ziegler
[2018-04-20] MEDS ORDERED: Pneumococcal 23-Valent Vaccine IM ONE (04:21)
[2018-04-20] MEDS ORDERED: Promethazine 12.5 mg/10 ml Syrup PO ONE (05:04)
[2018-04-20 06:29] LABS: BASO % 0.4 % (0.0-2.0); EOS # 0.2 K/uL (0.0-0.7); EOS % 4.5 % (0.0-4.0); LYMPH # 1.4 K/uL (1.0-4.3); LYMPH % 40.1 % (20.0-40.0); MEAN CELL VOLUME 94.6 fL (81.0-99.0); MEAN CORPUSCULAR HEMOGLOBIN 31.6 pg (27.0-31.0); MEAN CORPUSCULAR HGB CONC 33.5 g/dL (33.0-37.0); MONO # 0.3 K/uL (0.0-0.8); MONO % 9.1 % (0.0-10.0); NEUT # 1.6 K/uL (1.8-7.0); NEUT % 45.9 % (50.0-75.0); NRBC % 0.1 % (0.0-2.0); RBC 3.16 Mil/uL (3.80-5.20); RED CELL DISTRIBUTION WIDTH 13.1 % (11.5-14.5); WHITE BLOOD COUNT 3.6 K/uL (4.8-10.8)
[2018-04-20 06:50] LABS: ALB/GLOB RATIO 1.4 (1.0-2.1); ALBUMIN 3.4 g/dL (3.5-5.0); ALT/SGPT 13 U/L (9-52); AST/SGOT 19 U/L (14-36); BLOOD UREA NITROGEN 15 mg/dL (7-17); CALCIUM 8.8 mg/dl (8.6-10.4); GFR NON-AFRICAN AMERICAN 55
--- NOTE | 2018-04-20 08:53 | CP.PCM.PN ---
Subjective - Date & Time of Evaluation Date of Evaluation: 04/20/18 Time of Evaluation: 07:20 - Subjective Subjective: PGY-[address] Ziegler Patient is seen and examined at bedside. Patient states her headache is improving but she still experiences a sound inside her head, describes it as a whistle sound but states she does not experience it in her ear. Patient states not being able to sleep last night and admits to generalized weakness. Patient denies fever, chills, chest pain, shortness of breath, coughing, changes in vision or hearing, dizziness, nausea, vomtiing, diarrhea or constipation. Objective - Vital Signs/Intake and Output Vital Signs (last 24 hours): Temp Pulse Resp BP Pulse Ox 97.9 F 65 20 144/85 96 04/20/18 08:05 04/20/18 08:05 04/20/18 08:05 04/20/18 08:05 04/20/18 08:05 - Medications Medications: Current Medications Acetaminophen (Tylenol 325mg Tab) 650 mg PO Q6 PRN PRN Reason: Pain, moderate (4-7) Enoxaparin Sodium (Lovenox) 40 mg SC DAILY AAKASH Famotidine (Pepcid) 20 mg PO BID AAKASH Gabapentin (Neurontin) 300 mg PO TID AAKASH Hydrochlorothiazide (Microzide) 12.5 mg PO DAILY AAKASH Hydroxychloroquine Sulfate (Plaquenil) 200 mg PO BID AAKASH; Protocol Azithromycin 500 mg/ Sodium (Chloride) 250 mls @ 250 mls/hr IVPB DAILY AAKASH; Protocol Ceftriaxone Sodium 1 gm/ (Sodium Chloride) 100 mls @ 100 mls/hr IVPB DAILY AAKASH; Protocol Influenza Virus Vaccine (Fluzone Quad [id number]) 60 mcg IM .ONCE ONE Stop: 04/21/18 14:01 Lisinopril (Zestril) 10 mg PO DAILY AAKASH Trazodone HCl (Desyrel) 50 mg PO HS AAKASH Last Admin: 04/19/18 21:46 Dose: 50 mg Zolpidem Tartrate (Ambien) 5 mg PO HS PRN PRN Reason: Insomnia - Labs Labs: 04/20/18 06:23 04/20/18 06:23 PT 12.8 SECONDS (9.7-12.2) H 04/19/18 16:08 INR 1.2 04/19/18 16:08 APTT 33 SECONDS (21-34) 04/19/18 16:08 - Constitutional Appears: Non-toxic, No Acute Distress - Head Exam Head Exam: ATRAUMATIC, NORMAL INSPECTION, NORMOCEPHALIC - Eye Exam Eye Exam: EOMI, Normal appearance - ENT Exam ENT Exam: Mucous Membranes Moist, Normal Exam - Neck Exam Neck Exam: Full ROM, Normal Inspection - Respiratory Exam Respiratory Exam: Clear to Ausculation Bilateral, NORMAL BREATHING PATTERN - Cardiovascular Exam Cardiovascular Exam: REGULAR RHYTHM, +S1, +S2 - GI/Abdominal Exam GI & Abdominal Exam: Soft, Normal Bowel Sounds. absent: Distended, Guarding, Tenderness - Extremities Exam Extremities Exam: Full ROM, Normal Inspection. absent: Tenderness - Back Exam Back Exam: Full ROM, NORMAL INSPECTION - Neurological Exam Neurological Exam: Alert, Awake, Oriented x3 - Psychiatric Exam Psychiatric exam: Normal Affect, Normal Mood - Skin Skin Exam: Dry, Intact, Normal Color, Warm Assessment and Plan - Assessment and Plan (Free Text) Plan: RUL Infiltrate - afebrile - WBC 3.6 - CXR: patchy opacity suspicious of infiltrate in medial RUL - start azithro 500 IV daily - start rocephin 1g IV daily - r/o TB - f/u AFP sputum cultures q8h x4 - one sputum collected - patient reports having trouble producing sputum - F/U sputum cultures results - Nurse communication - respiratory for sputum induction for AFB cutures - Cxray repeat: no active pulmonary disease - airborn isolation - Pulm consult - Dr Kraft - help is appreciated Headache - AAOx3, unremarkable neuro exam - CT head negative - CT angio negative - tylenol PRN HTN - BP - start home lisinopril/HCTZ Anxiety - continue home zolpidem HS PRN - continue home trazodone 50mg HS - start clonazepam .5 mg BID PRN Lupus - restart home plaquenil 200 BID Sjogrens - restart home plaquenil 200 BID PPX: Pepcid 20 BID Lovenox 40 SC HHD Plan discussed with DR Ziegler, all management as per Dr Toney Jean, PGY-1
[2018-04-20] MEDS: Azithromycin 500 MG in Sodium Chloride 0.9% 250 ML IVPB SCH (09:00)
[2018-04-20] MEDS: Enoxaparin 40 mg Syringe SC SCH (11:00)
--- NOTE | 2018-04-20 13:33 | RAD ---
Date of service: 04/20/2018 HISTORY: right upper lobe infiltrate COMPARISON: 04/19/2018 FINDINGS: LUNGS: The lungs are well inflated. No evidence of airspace disease in the right upper lobe. PLEURA: No significant pleural effusion identified, no pneumothorax apparent. CARDIOVASCULAR: Normal. OSSEOUS STRUCTURES: No significant abnormalities. VISUALIZED UPPER ABDOMEN: Normal. OTHER FINDINGS: None. IMPRESSION: No active pulmonary disease.
[2018-04-21 07:33] LABS: BASO % 0.5 % (0.0-2.0); EOS # 0.1 K/uL (0.0-0.7); EOS % 3.8 % (0.0-4.0); HEMOGLOBIN 10.5 g/dL (11.0-16.0); LYMPH # 1.4 K/uL (1.0-4.3); LYMPH % 40.9 % (20.0-40.0); MEAN CELL VOLUME 94.9 fL (81.0-99.0); MEAN CORPUSCULAR HEMOGLOBIN 31.8 pg (27.0-31.0); MEAN CORPUSCULAR HGB CONC 33.5 g/dL (33.0-37.0); MEAN PLATELET VOLUME 9.4 fL (7.2-11.7); MONO # 0.3 K/uL (0.0-0.8); MONO % 9.7 % (0.0-10.0); NEUT # 1.5 K/uL (1.8-7.0); NEUT % 45.1 % (50.0-75.0); NRBC % 0.1 % (0.0-2.0); RBC 3.29 Mil/uL (3.80-5.20); RED CELL DISTRIBUTION WIDTH 12.9 % (11.5-14.5); WHITE BLOOD COUNT 3.4 K/uL (4.8-10.8)
[2018-04-21 07:44] LABS: ALB/GLOB RATIO 1.4 (1.0-2.1); ALBUMIN 3.5 g/dL (3.5-5.0); CALCIUM 8.9 mg/dl (8.6-10.4)
[2018-04-21 08:11] VITALS: RESP 20
[2018-04-21] MEDS: Enoxaparin 40 mg Syringe SC SCH (10:22)
[2018-04-21] MEDS: Azithromycin 500 MG in Sodium Chloride 0.9% 250 ML IVPB SCH (10:28)
--- NOTE | 2018-04-21 13:07 | CP.PCM.PN ---
Subjective - Date & Time of Evaluation Date of Evaluation: 04/21/18 Time of Evaluation: 07:20 - Subjective Subjective: PGY-[address] Ziegler service Patient is seen and examined at bedside. Patient states she continues to not being able to sleep at night and feeling anxious most of the time. Patient admits to headaches last night and continuing ringing in the side of her head. Patient denies fever, chills, chest pain, shortness of breath, nausea, vomiting, diarrhea, constipation or dysuria. Patient continues to be under airborne isolation. Patient is tolerating her diet at this time. Objective - Vital Signs/Intake and Output Vital Signs (last 24 hours): Temp Pulse Resp BP Pulse Ox 98.2 F 70 20 121/69 95 04/21/18 08:09 04/21/18 08:09 04/21/18 08:09 04/21/18 08:09 04/21/18 08:09 Intake and Output: 04/21/18 04/21/18 06:59 18:59 Intake Total 400 Balance 400 - Medications Medications: Current Medications Acetaminophen (Tylenol 325mg Tab) 650 mg PO Q6 PRN PRN Reason: Pain, moderate (4-7) Last Admin: 04/21/18 00:17 Dose: 650 mg Clonazepam (Klonopin) 0.5 mg PO BID PRN PRN Reason: Anxiety Last Admin: 04/21/18 10:22 Dose: 0.5 mg Enoxaparin Sodium (Lovenox) 40 mg SC DAILY [facility] Last Admin: 04/21/18 10:22 Dose: 40 mg Famotidine (Pepcid) 20 mg PO BID [facility] Last Admin: 04/21/18 10:22 Dose: 20 mg Gabapentin (Neurontin) 300 mg PO TID [facility] Last Admin: 04/21/18 10:22 Dose: 300 mg Hydrochlorothiazide (Microzide) 12.5 mg PO DAILY [facility] Last Admin: 04/21/18 10:22 Dose: 12.5 mg Hydroxychloroquine Sulfate (Plaquenil) 200 mg PO BID [facility]; Protocol Last Admin: 04/21/18 10:23 Dose: 200 mg Azithromycin 500 mg/ Sodium (Chloride) 250 mls @ 250 mls/hr IVPB DAILY [facility]; Protocol Last Admin: 04/21/18 10:28 Dose: 250 mls/hr Ceftriaxone Sodium 1 gm/ (Sodium Chloride) 100 mls @ 100 mls/hr IVPB DAILY [facility]; Protocol Last Admin: 04/21/18 10:00 Dose: 100 mls/hr Influenza Virus Vaccine (Fluzone Quad [id number]) 60 mcg IM .ONCE ONE Stop: 04/21/18 14:01 Lisinopril (Zestril) 10 mg PO DAILY [facility] Last Admin: 04/21/18 10:22 Dose: 10 mg Potassium Chloride (K-Dur 20 Meq Er Tab) 20 meq PO ONCE ONE Stop: 04/21/18 13:16 Trazodone HCl (Desyrel) 50 mg PO HS [facility] Last Admin: 04/20/18 22:26 Dose: 50 mg Zolpidem Tartrate (Ambien) 5 mg PO HS PRN PRN Reason: Insomnia - Labs Labs: 04/21/18 07:22 04/21/18 07:22 PT 12.8 SECONDS (9.7-12.2) H 04/19/18 16:08 INR 1.2 04/19/18 16:08 APTT 33 SECONDS (21-34) 04/19/18 16:08 - Constitutional Appears: Non-toxic, No Acute Distress - Head Exam Head Exam: ATRAUMATIC, NORMAL INSPECTION, NORMOCEPHALIC - Eye Exam Eye Exam: EOMI, Normal appearance - ENT Exam ENT Exam: Mucous Membranes Moist, Normal Exam - Neck Exam Neck Exam: Full ROM, Normal Inspection - Respiratory Exam Respiratory Exam: Decreased Breath Sounds, NORMAL BREATHING PATTERN. absent: Accessory Muscle Use, Rales, Rhonchi, Wheezes, Respiratory Distress Additional comments: right middle lobe decreased breath sounds - Cardiovascular Exam Cardiovascular Exam: REGULAR RHYTHM, +S1, +S2 - GI/Abdominal Exam GI & Abdominal Exam: Soft, Normal Bowel Sounds. absent: Distended, Tenderness - Extremities Exam Extremities Exam: Full ROM, Normal Capillary Refill, Normal Inspection. absent: Calf Tenderness, Tenderness - Back Exam Back Exam: Full ROM, NORMAL INSPECTION. absent: tenderness - Neurological Exam Neurological Exam: Alert, Awake, Normal Gait, Oriented x3 - Psychiatric Exam Psychiatric exam: Normal Affect, Normal Mood - Skin Skin Exam: Dry, Intact, Normal Color, Warm Assessment and Plan - Assessment and Plan (Free Text) Plan: RUL Infiltrate - continues to be afebrile - WBC 3.4 today - CXR: patchy opacity suspicious of infiltrate in medial RUL - start azithro 500 IV daily - start rocephin 1g IV daily - r/o TB - f/u AFP sputum cultures q8h x4 - one sputum collected - patient reports having trouble producing sputum - F/U sputum cultures results - Nurse communication - respiratory for sputum induction for AFB cutures - Cxray repeat: no active pulmonary disease - airborn isolation - Pulm consult - Dr Kraft - help is appreciated Headache - AAOx3, unremarkable neuro exam - CT head negative - CT angio negative - tylenol PRN HTN - BP - start home lisinopril/HCTZ Anxiety - continue home zolpidem 5mg HS PRN - continue home trazodone 50mg HS - start clonazepam .5 mg BID PRN Lupus - restart home plaquenil 200 BID Sjogrens - restart home plaquenil 200 BID PPX: Pepcid 20 BID Lovenox 40 SC HHD Plan discussed with DR Ziegler, all management as per Dr Toney Jean, PGY-1
[2018-04-21] MEDS ORDERED: Potassium Chloride 20 mEq ER Tab PO ONE (13:15)
--- NOTE | 2018-04-21 13:40 | CT ---
Date of service: 04/21/2018 PROCEDURE: CT Chest without contrast HISTORY: r/o TB COMPARISON: Chest x-ray 04/20/2018 0806 hr TECHNIQUE: Contiguous axial images were obtained through the chest without intravenous contrast enhancement. Sagittal and coronal reconstructions were performed. Radiation dose (DLP): 199 mGy-cm. This CT exam was performed using one or more of the following dose reduction techniques: Automated exposure control, adjustment of the mA and/or kV according to patient size, and/or use of iterative reconstruction technique. FINDINGS: LUNGS: No discrete abscess or mass seen in either lung. No consolidation or gross traction bronchiectasis seen. Airways patent Trace areas of uneven attenuation mosaicism; can be seen with minimally ventilation-profusion imbalance and slight air trapping processes MEDIASTINUM: Atherosclerotic vascular calcification. No aneurysm. Normal sized heart. Main pulmonary artery unremarkable. No vascular congestion. No lymphadenopathy. PLEURA: No pleural fluid. No pneumothorax. Mild right apical pleural thickening and trace left apical pleural thickening-findings are nonspecific. BONES: No fracture. No destructive lesion. UPPER ABDOMEN: Grossly unremarkable. OTHER FINDINGS: None. IMPRESSION: Mild right apical pleural thickening and trace left apical pleural thickening-findings are nonspecific. No masses, abscesses or cavitary lesions. Other findings as above.
[2018-04-21] MEDS ORDERED: Influenza Vaccine 60 MCG/0.5 ML SYR (3 yr & up) IM ONE (14:00)
--- NOTE | 2018-04-21 15:44 | CP.PCM.CON ---
History of Present Illness - History of Present Illness History of Present Illness: Patient is a 68 year old female with a PMHx of HTN, Lupus, Sjogren syndrome, Arthritis, Breast cancer s/p right mastectomy, Anxiety and Bipolar disorder who presented with initial symptoms of headaches and ringing sensation in her ear. She reports this has been ongoing for the last 5 months. Patient reports headaches have persisted, located to the right temporal area and rates them a 5-6 out of 10. Patient also admits to SOB with exertion, fatigue, decreased energy and diaphoresis. Denies cough, hemoptysis, chest pain. Denies any sick contacts. It is important to mention patient visited [facility] during the month of January. She was hospitalized while there due to increase fatigue and pain. Patient was given pain medication during this admission and discharged. CXR 04/19 - Patchy opacity within the medial right upper lobe of unclear significance; infiltrate suspected. No significant pleural effusion. No pneumothorax. CXR 04/20 - No evidence of airspace disease in right upper lobe. PMHx: HTN, Lupus, Sjogren syndrome, Arthritis, Breast cancer s/p right mastectomy, Anxiety and Bipolar disorder Surgical Hx: Knee surgery, ankle surgery, appendectomy, facial surgery, right breast partial mastectomy Meds: Venlafaxine, Plavix, Clonazepam, Trazodone, Ambien, Gabapentin, HCTZ, Lisinopril Allergies: Annex (tremors) Fam Hx: unknown Social Hx: Patient lives on her own although she does admit living with her grandchildren at times. Denies tobacco or alcohol use. Past Patient History - Infectious Disease Hx of Infectious Diseases: None - Past Medical History & Family History Past Medical History?: Yes - Past Social History Smoking Status: Never Smoked - CARDIAC Hx Hypertension: Yes - PULMONARY Hx Respiratory Disorders: No - NEUROLOGICAL Other/Comment: Hx of fibromyalgia - HEENT Hx HEENT Problems: No - RENAL Hx Chronic Kidney Disease: No - ENDOCRINE/METABOLIC Hx Systemic Lupus Erythematosus: Yes Other/Comment: sjogrens - HEMATOLOGICAL/ONCOLOGICAL Hx Blood Disorders: No - INTEGUMENTARY Hx Dermatological Problems: No - MUSCULOSKELETAL/RHEUMATOLOGICAL Hx Falls: No - GASTROINTESTINAL Hx Gastrointestinal Disorders: No - GENITOURINARY/GYNECOLOGICAL Other/Comment: bladder surgery - PSYCHIATRIC Hx Anxiety: Yes Hx Bipolar Disorder: Yes Hx Depression: Yes Hx Substance Use: No - SURGICAL HISTORY Hx Appendectomy: Yes - ANESTHESIA Hx Anesthesia: Yes Hx Anesthesia Reactions: No Hx Malignant Hyperthermia: No Meds Allergies/Adverse Reactions: Allergies Allergy/AdvReac Type Severity Reaction Status Date / Time lithium AdvReac FATIGUE Verified 04/19/18 16:26 - Medications Medications: Current Medications Acetaminophen (Tylenol 325mg Tab) 650 mg PO Q6 PRN PRN Reason: Pain, moderate (4-7) Last Admin: 04/21/18 00:17 Dose: 650 mg Clonazepam (Klonopin) 0.5 mg PO BID PRN PRN Reason: Anxiety Last Admin: 04/21/18 10:22 Dose: 0.5 mg Enoxaparin Sodium (Lovenox) 40 mg SC DAILY [facility] Last Admin: 04/21/18 10:22 Dose: 40 mg Famotidine (Pepcid) 20 mg PO BID [facility] Last Admin: 04/21/18 10:22 Dose: 20 mg Gabapentin (Neurontin) 300 mg PO TID [facility] Last Admin: 04/21/18 14:15 Dose: 300 mg Hydrochlorothiazide (Microzide) 12.5 mg PO DAILY [facility] Last Admin: 04/21/18 10:22 Dose: 12.5 mg Hydroxychloroquine Sulfate (Plaquenil) 200 mg PO BID [facility]; Protocol Last Admin: 04/21/18 10:23 Dose: 200 mg Azithromycin 500 mg/ Sodium (Chloride) 250 mls @ 250 mls/hr IVPB DAILY [facility]; Protocol Last Admin: 04/21/18 10:28 Dose: 250 mls/hr Ceftriaxone Sodium 1 gm/ (Sodium Chloride) 100 mls @ 100 mls/hr IVPB DAILY [facility]; Protocol Last Admin: 04/21/18 10:00 Dose: 100 mls/hr Lisinopril (Zestril) 10 mg PO DAILY [facility] Last Admin: 04/21/18 10:22 Dose: 10 mg Trazodone HCl (Desyrel) 50 mg PO HS [facility] Last Admin: 04/20/18 22:26 Dose: 50 mg Zolpidem Tartrate (Ambien) 5 mg PO HS PRN PRN Reason: Insomnia Physical Exam - Head Exam Head Exam: ATRAUMATIC, NORMOCEPHALIC - ENT Exam ENT Exam: Mucous Membranes Moist - Neck Exam Neck exam: Positive for: Normal Inspection - Respiratory Exam Respiratory Exam: Clear to Auscultation Bilateral - Cardiovascular Exam Cardiovascular Exam: REGULAR RHYTHM - GI/Abdominal Exam GI & Abdominal Exam: Normal Bowel Sounds, Soft - Extremities Exam Extremities exam: Positive for: normal inspection - Neurological Exam Neurological exam: Alert, Oriented x3 Results - Vital Signs Recent Vital Signs: Last Vital Signs Temp 98.2 F 04/21/18 08:09 Pulse 70 04/21/18 08:09 Resp 20 04/21/18 08:09 BP 121/69 04/21/18 08:09 Pulse Ox 95 04/21/18 08:09 - Labs Result Diagrams: 04/21/18 07:22 04/21/18 07:22 Labs: Laboratory Results - last 24 hr 04/21/18 04/21/18 07:22 07:22 WBC 3.4 L RBC 3.29 L Hgb 10.5 L Hct 31.2 L MCV 94.9 MCH 31.8 H MCHC 33.5 RDW 12.9 Plt Count 161 MPV 9.4 Neut % (Auto) 45.1 L Lymph % (Auto) 40.9 H Day % (Auto) 9.7 Eos % (Auto) 3.8 Baso % (Auto) 0.5 Neut # (Auto) 1.5 L Lymph # (Auto) 1.4 Day # (Auto) 0.3 Eos # (Auto) 0.1 Baso # (Auto) 0.0 Sodium 143 Potassium 3.5 L Chloride 103 Carbon Dioxide 29 Anion Gap 14 BUN 16 Creatinine 1.2 Est GFR ( Amer) 54 Est GFR (Non-Af Amer) 44 Random Glucose 88 Calcium 8.9 Total Bilirubin 0.5 AST 21 ALT 22 Alkaline Phosphatase 111 Total Protein 6.0 L Albumin 3.5 Globulin 2.5 Albumin/Globulin Ratio 1.4 Assessment & Plan (1) Infiltrate of lung present on chest x-ray Status: Acute Comment: CAT scan of the chest done showed no lung infiltrate. Discontinue respiratory isolation
[2018-04-22 06:36] LABS: BASO % 0.6 % (0.0-2.0); EOS # 0.1 K/uL (0.0-0.7); HEMOGLOBIN 10.4 g/dL (11.0-16.0); LYMPH # 1.3 K/uL (1.0-4.3); LYMPH % 38.6 % (20.0-40.0); MEAN CORPUSCULAR HEMOGLOBIN 31.4 pg (27.0-31.0); MEAN PLATELET VOLUME 9.3 fL (7.2-11.7); MONO # 0.3 K/uL (0.0-0.8); MONO % 8.4 % (0.0-10.0); NEUT # 1.7 K/uL (1.8-7.0); NEUT % 48.4 % (50.0-75.0); RBC 3.33 Mil/uL (3.80-5.20); RED CELL DISTRIBUTION WIDTH 13.4 % (11.5-14.5); WHITE BLOOD COUNT 3.5 K/uL (4.8-10.8)
[2018-04-22 07:37] LABS: ALB/GLOB RATIO 1.4 (1.0-2.1); ALBUMIN 3.6 g/dL (3.5-5.0); CALCIUM 9.1 mg/dl (8.6-10.4)
[2018-04-22 08:12] VITALS: BP 154/84; PULSE 67; TEMP 98.1; O2SAT 99
[2018-04-22] MEDS: Enoxaparin 40 mg Syringe SC SCH (10:21)
--- NOTE | 2018-04-22 15:33 | CP.PCM.PN ---
Subjective - Date & Time of Evaluation Date of Evaluation: 04/22/18 Time of Evaluation: 15:00 - Subjective Subjective: Patient was seen and examined at bedside, resting comfortably. Afebrile and in no acute distress. Admits to headache and decreased mood. Denies SOB, cough, chest pain and chest tightness. Reports she will be discharged later today. Objective - Vital Signs/Intake and Output Vital Signs (last 24 hours): Temp Pulse Resp BP Pulse Ox 98.1 F 67 20 154/84 H 99 04/22/18 08:10 04/22/18 08:10 04/22/18 08:10 04/22/18 08:10 04/22/18 08:10 Intake and Output: 04/22/18 04/22/18 06:59 18:59 Intake Total 350 Balance 350 - Labs Labs: 04/22/18 06:28 04/22/18 06:28 PT 12.8 SECONDS (9.7-12.2) H 04/19/18 16:08 INR 1.2 04/19/18 16:08 APTT 33 SECONDS (21-34) 04/19/18 16:08 Assessment and Plan (1) Infiltrate of lung present on chest x-ray Status: Acute
--- NOTE | 2018-04-22 20:04 | CP.PCM.DIS ---
Provider - Provider Date of Admission: 04/19/18 18:37 Attending physician: Margarito Ziegler Jr, MD Time Spent in preparation of Discharge (in minutes): 180 Diagnosis - Discharge Diagnosis (1) Infiltrate of lung present on chest x-ray Status: Acute (2) Pneumonia Status: Acute Hospital Course - Lab Results Lab Results: Micro Results 04/21/18 14:36 Other: Please Indicate Mycobacterial Culture - Preliminary 04/19/18 18:50 Blood-Venous Blood Culture - Preliminary NO GROWTH AFTER 48 HOURS 04/19/18 18:40 Blood-Venous Blood Culture - Preliminary NO GROWTH AFTER 48 HOURS 04/20/18 10:45 Other: Please Indicate Mycobacterial Culture - Preliminary Most Recent Lab Values WBC 3.5 K/uL (4.8-10.8) L 04/22/18 06:28 RBC 3.33 Mil/uL (3.80-5.20) L 04/22/18 06:28 Hgb 10.4 g/dL (11.0-16.0) L 04/22/18 06:28 Hct 31.6 % (34.0-47.0) L 04/22/18 06:28 MCV 95.0 fL (81.0-99.0) 04/22/18 06:28 MCH 31.4 pg (27.0-31.0) H 04/22/18 06:28 MCHC 33.0 g/dL (33.0-37.0) 04/22/18 06:28 RDW 13.4 % (11.5-14.5) 04/22/18 06:28 Plt Count 164 K/uL (130-400) 04/22/18 06:28 MPV 9.3 fL (7.2-11.7) 04/22/18 06:28 Neut % (Auto) 48.4 % (50.0-75.0) L 04/22/18 06:28 Lymph % (Auto) 38.6 % (20.0-40.0) 04/22/18 06:28 Cottle % (Auto) 8.4 % (0.0-10.0) 04/22/18 06:28 Eos % (Auto) 4.0 % (0.0-4.0) 04/22/18 06:28 Baso % (Auto) 0.6 % (0.0-2.0) 04/22/18 06:28 Neut # (Auto) 1.7 K/uL (1.8-7.0) L 04/22/18 06:28 Lymph # (Auto) 1.3 K/uL (1.0-4.3) 04/22/18 06:28 Cottle # (Auto) 0.3 K/uL (0.0-0.8) 04/22/18 06:28 Eos # (Auto) 0.1 K/uL (0.0-0.7) 04/22/18 06:28 Baso # (Auto) 0.0 K/uL (0.0-0.2) 04/22/18 06:28 ESR 10 mm/hr (0-20) 04/19/18 16:08 PT 12.8 SECONDS (9.7-12.2) H 04/19/18 16:08 INR 1.2 04/19/18 16:08 APTT 33 SECONDS (21-34) 04/19/18 16:08 Sodium 142 mmol/L (132-148) 04/22/18 06:28 Potassium 4.0 mmol/L (3.6-5.2) 04/22/18 06:28 Chloride 105 mmol/L (98-107) 04/22/18 06:28 Carbon Dioxide 28 mmol/L (22-30) 04/22/18 06:28 Anion Gap 13 (10-20) 04/22/18 06:28 BUN 23 mg/dL (7-17) H 04/22/18 06:28 Creatinine 1.3 mg/dL (0.7-1.2) H 04/22/18 06:28 Est GFR ( Amer) 49 04/22/18 06:28 Est GFR (Non-Af Amer) 40 04/22/18 06:28 POC Glucose (mg/dL) 126 mg/dL (65-110) H 04/20/18 11:12 Random Glucose 87 mg/dL (65-105) 04/22/18 06:28 Calcium 9.1 mg/dl (8.6-10.4) 04/22/18 06:28 Total Bilirubin 0.7 mg/dL (0.2-1.3) 04/22/18 06:28 AST 28 U/L (14-36) 10/17/18 06:28 ALT 19 U/L (9-52) 04/22/18 06:28 Alkaline Phosphatase 103 U/L (38-126) 04/22/18 06:28 Total Protein 6.1 g/dL (6.3-8.3) L 04/22/18 06:28 Albumin 3.6 g/dL (3.5-5.0) 04/22/18 06:28 Globulin 2.5 gm/dL (2.2-3.9) 04/22/18 06:28 Albumin/Globulin Ratio 1.4 (1.0-2.1) 04/22/18 06:28 - Hospital Course Hospital Course: On admission: Pt is a 68yo F PMH HTN, anxiety, bipolar, lupus, sjogrens who presents to ED complaining of R-sided headache for the past 5 days. She reports an intense pain that she rates 8/10, worse when laying down. She took advil and tylenol at home with no relief. She reports some ringing in the R ear. She denies any dizziness, blurry vision, chest pain, shortness of breath, nausea, vomiting, diarrhea, dysuria. She also reports associated fatigue and 30lb weight loss over the past 9 months. She reports tingling and buring in the b/l feet and hands for the past 9 months. On hospitalization: On ED CXR showed patchy opacities suspicious of infiltrate in medial RUL. Pt was given azithromycin and ceftriaxone. Patient is admitted for further evaluation and treatment of right upper lobe infiltrate. Patient was continued on Azithro 500 IV daily and rocephin 1g IV daily. Patient was worked up to rule out TB. Patient was placed on airborn precaution/isolation. AFB sputum cultures were ordered, which came negative x 2. Dr Megan Kraft, pumonologist, was consulted, and ordered a CT chest which showed no lung infiltrates. Patient was placed out of isolation. repeat chest xray showed no active pulmonary disease. For patient's complain of headache, CT head was negatve, CT angio was negative, patient was unremarkable on neuro exam. Patient was given tylenol PRN for pain. for history of HTN, patient was started on home lisinopril and HCTZ. Patient continued zolpidem 5mg HS prn, trazodone 50mg HS and clonazepam .5 mg BID prn for history of anxiety. for history of lupus and Sjogrens, patient was continued on plaquenil 200mg BID. Patient was placced on pepcid 20 BID for GI prophylaxis and lovenox 40 SC for DVT prophylaxis. On discharge: The following instruction were given to patient: Patient is to follow up with Dr Ziegler, primary doctor, in one to two weeks after discharge Patient must find a marketing communications assistant to follow up with management of her chronic pain. Patient is to follow up with her psychiatrist for management and medication refills Patient is to continue taking all her home medications If any symptoms worsen or recur, please return to the ER. This is a brief summary of patient's hospitalization course. For more information, please see patient's EMR. - Date & Time of H&P Date of H&P: 04/20/18 Time of H&P: 00:05 Discharge Exam - Head Exam Head Exam: ATRAUMATIC, NORMOCEPHALIC - Eye Exam Eye Exam: EOMI, Normal appearance - ENT Exam ENT Exam: Mucous Membranes Moist, Normal Exam - Neck Exam Neck exam: Full Rom - Respiratory Exam Respiratory Exam: Clear to PA & Lateral, NORMAL BREATHING PATTERN, UNREMARKABLE. absent: Accessory Muscle Use, Decreased Breath Sounds, Rales, Rhonchi, Wheezes, Respiratory Distress - Cardiovascular Exam Cardiovascular Exam: REGULAR RHYTHM, +S1, +S2 - GI/Abdominal Exam GI & Abdominal Exam: Normal Bowel Sounds, Unremarkable. absent: Distended, Guarding - Extremities Exam Extremities exam: full ROM, normal inspection - Back Exam Back exam: FULL ROM, NORMAL INSPECTION - Neurological Exam Neurological exam: Alert, Normal Gait, Oriented x3 - Psychiatric Exam Psychiatric exam: Normal Affect, Normal Mood - Skin Skin Exam: Dry, Intact, Normal Color, Warm Discharge Plan - Follow Up Plan Condition: FAIR Disposition: HOME/ ROUTINE Instructions: Heart Healthy Diet, Pneumonia, Adult (DC) Additional Instructions: Patient is to follow up with Dr Ziegler, primary doctor, in one to two weeks after discharge Patient must find a marketing communications assistant to follow up with management of her chronic pain. Patient is to follow up with her psychiatrist for management and medication refills Patient is to continue taking all her home medications If any symptoms worsen or recur, please return to the ER. El paciente debe seguir con el Dr. miguel angel mdico primario, en [place] a dos semanas despus de que el paciente de la descarga deba encontrar un reumatlogo para seguir con la gerencia de li dolor crnico. Paciente es el seguimiento con li psiquiatra para la gestin y el paciente recargas de medicamentos es seguir tomando todos yaakov medicamentos para el hogar Si algn sntoma empeora o se repite, por favor regrese a la laurie de emergencias. Referrals: Margarito Ziegler Jr., MD [Medical Doctor] -
== END 2018-04-22 13:10 | disposition home or self-care (01) | DRG 195 ==
LOC: C.ER 14:31 → C.9E 18:37 → C.6T 21:40 → C.9E 21:43 → C.6T 21:57
PROVIDERS: ADMIT Internal Medicine; ATTEND Internal Medicine
DX: J18.9 Pneumonia, unspecified organism (principal); I10 Essential (primary) hypertension; M32.9 Systemic lupus erythematosus, unspecified; F31.9 Bipolar disorder, unspecified; M35.00 Sjogren syndrome, unspecified; M79.7 Fibromyalgia; F41.9 Anxiety disorder, unspecified; Z85.3 Personal history of malignant neoplasm of breast; Z90.11 Acquired absence of right breast and nipple; Z90.49 Acquired absence of other specified parts of digestive tract; Z82.3 Family history of stroke